=== PATIENT | female | born 1935 | race Caucasian/White ===

== ENCOUNTER 2018-05-28 14:50 | Observation (INO) ==
--- NOTE | 2018-05-28 15:22 | Emergency Department Note ---
Disposition Clinical Impression: Dyspnea on exertion Chest pain Qualifiers: Chest pain type: unspecified Qualified Code(s): R07.9 - Chest pain, unspecified Disposition: Admitted As Inpatient Condition: Good Referrals: Kj Barber DO [Primary Care Provider] - Forms: ED Satisfaction Letter Time of Disposition: 18:01 SOB HPI - General Chief Complaint: ED Shortness of Breath/Dyspnea Stated Complaint: FILEMON Time Seen by Provider: 05/28/18 15:04 Source: patient, family () Mode of arrival: ambulatory Limitations: no limitations Nursing Notes Reviewed: Yes Vital Signs Reviewed: Yes - History of Present Illness 82-year-old female history of atrial fibrillation, mitral valve replacement ( pig valve) no anticoagulation, and COPD on to liter oxygen supplementation only as needed presents emergency department for difficulty breathing and chest pressure. States over the past week she is gradually got more short of breath. It is worse on exertion. She is also been experiencing a flutter in her chest most recent was when the EKG was performed. She does not experience it right now at the moment. She typically does not wear supplemental oxygen at baseline only when needed. Recently she has been requiring this. She has also been experiencing chest pressure in the midsternum whenever she gets up to walk. The most recent was getting from the car to the emergency department entrance. It does get better with rest. Denies history of cardiac ischemic disease. He is currently chest pain free. She is also noticed that her legs have swollen more than usual. It does not improve with elevating her legs. She reports a cough earlier in the week that has now resolved. Denies any fever or congestion. Her test lab technician is Dr. aDisy Dempsey. The surgeon that performed her mitral valve repair Dr. Rosenberg. She never smoked. She does report using her inhaler with minimal relief. February 2018 she had her left shoulder replaced. Pt Subjective Complaint: shortness of breath, cough, chest pain - Related Data Home Medications Medication Instructions Recorded Confirmed Aspirin Enteric Coated [Aspirin EC] 162 mg PO DAILY 05/28/18 05/28/18 Cetirizine HCl [Zyrtec] 10 mg PO DAILY 05/28/18 05/28/18 FLUoxetine HCl [Fluoxetine HCl] 40 mg PO DAILY 05/28/18 05/28/18 HYDROcodone/Acet 10/325 mg [[place] 1 tab PO Q6HR PRN 05/28/18 05/28/18 10-325 mg] Ibuprofen [Advil] 200 mg PO 2-3XD PRN 05/28/18 05/28/18 Lisinopril [Zestril] 10 mg PO DAILY 05/28/18 05/28/18 Metoprolol Succinate [Toprol Xl] 50 mg PO DAILY 05/28/18 05/28/18 Multivitamin [One Daily Essential] 1 tab PO DAILY 05/28/18 05/28/18 Pantoprazole Sodium [Protonix] 40 mg PO DAILY 05/28/18 05/28/18 Pravastatin Sodium [Pravachol] 40 mg PO HS 05/28/18 05/28/18 hydroCHLOROthiazide 25 mg PO DAILY 05/28/18 05/28/18 [Hydrochlorothiazide] Allergies Allergy/AdvReac Type Severity Reaction Status Date / Time codeine Allergy See Verified 05/28/18 15:54 Comments Sulfa (Sulfonamide Allergy See Verified 05/28/18 15:54 Antibiotics) Comments All systems ED: reviewed and negative except as stated. Review of Systems: As Per HPI Constitutional: Denies: fever, chills ENT ED: Denies: congestion Cardiovascular: Reports: chest pain, dyspnea on exertion Respiratory: Reports: dyspnea. Denies: cough, hemoptysis Gastrointestinal: Denies: abdominal pain, nausea, vomiting Genitourinary: Denies: urgency, dysuria Neurological: Denies: headache Past Medical History - Past Medical History Attestation: Yes The following information was validated with the patient. Source: patient Physical Exam - General Limitations: no limitations General appearance: alert, in no apparent distress, obese - Head Head exam: atraumatic, normocephalic, normal inspection - Eye Eye exam: Present: normal appearance, PERRL, EOMI - ENT ENT exam: normal exam, normal oropharynx, mucous membranes moist - Neck Neck exam: Present: normal inspection, full ROM, trachea midline - Chest Chest inspection: Present: normal inspection, symmetric chest wall rise. Absent : tenderness - Respiratory Respiratory exam: Present: normal lung sounds bilaterally. Absent: respiratory distress, wheezes - Cardiovascular Cardiovascular exam: Present: regular rate, normal rhythm, normal heart sounds. Absent: systolic murmur, diastolic murmur, clicks - Abdominal Exam Abdominal exam: Present: soft, Non-Tender, normal bowel sounds. Absent: tenderness, distention, guarding, rebound, rigidity - Extremities Exam Extremities exam: Present: normal inspection, full ROM, normal capillary refill , pedal edema (Pitting +1 bilateral, swelling is symmetrical), other (Bilateral total knee replacement scar). Absent: tenderness, calf tenderness - Back Exam Back exam: Present: normal inspection, full ROM. Absent: tenderness - Neurological Exam Neurological exam: Present: alert, oriented X3 - Psychiatric Psychiatric exam: Present: normal affect, normal mood - Skin Skin exam: Present: warm, dry, intact, normal color. Absent: rash, cyanosis, diaphoresis Course Course Narrative: Patient presents with worsening shortness of breath over the past week worse on exertion with associated chest pressure. No history of cardiac ischemic disease. On examination here she has some conversational dyspnea. Her oxygen saturation is 93% on room air. Lungs sounds are clear to auscultation bilaterally. Heart's regular rate and rhythm. She does have some pitting edema symmetrical bilaterally to lower extremities. At this time her dyspnea is undifferentiated and will evaluate with BNP a chest x-ray basic labs including troponin and the D dimer she has low risk without prior history of blood clots - Reevaluation(s) Reevaluation #1: Troponin lesson 0.03. Her D dimer is significantly elevated 1300. Given her remote history of left shoulder replacement will obtain CTA chest. Her BNP is also elevated > 500 Time: 16:23 Reevaluation #2: CT of the chest and not reveal pulmonary embolism. No evidence of effusion or pneumonia. At this time patient will be admitted for dyspnea on exertion as well as her chest pressure. Her BNP was significantly elevated 529 and could suggest mild CHF. Patient has been given aspirin here she would be admitted to the hospitalist service. Time: 18:00 Reevaluation #3: Patiently waiting call back from hospital for admission. Patient remains in no acute respiratory distress. Her oxygen saturation did drop to 86% and she was placed on 2 liter nasal cannula. Her oxygen saturation currently remains at 96% Time: 19:06 - Consultations Consultation #1: Spoke with on-call hospitalist essie Bravo to admit for dyspnea on exertion, elevated BNP and chest pain. No further orders at this time Time: 19:18 Vital Signs Temperature 98.2 F 05/28/18 14:54 Pulse Rate 65 08/02/18 14:54 Respiratory Rate 26 05/28/18 14:54 Blood Pressure 155/88 05/28/18 14:54 O2 Sat by Pulse Oximetry 91 05/28/18 14:54 Temperature 98.2 F 05/28/18 15:30 Pulse Rate 64 05/28/18 15:30 Respiratory Rate 22 05/28/18 15:30 Blood Pressure 134/79 05/28/18 15:30 O2 Sat by Pulse Oximetry 92 05/28/18 15:41 Oxygen Delivery Oxygen Delivery Room Air Shortness of Breath/Dyspnea - MDM Narrative Medical decision making narrative: Patient was discussed with my attending physician who agrees with ED management and final disposition. They independently evaluated the patient. Please refer to their attestation to this encounter for additional information. This note was generated by [employer] voice recognition software and as a result grammatical or spelling errors may occur using this program. - Medical Records Medical records reviewed: Yes I reviewed the patient's medical records. - Lab Data Lab results reviewed: Yes I reviewed the patient's lab results. Result diagrams: 05/28/18 15:48 05/28/18 15:48 Lab Results 05/28/18 05/28/18 05/28/18 Range/Units 15:48 15:48 15:48 WBC 6.0 (4.3-11.1) K/mcL RBC 3.74 L (3.82-4.97) M/mcL Hgb 11.6 (11.5-15.4) g/dL Hct 35.4 (35.3-44.9) % MCV 94.7 (83.0-100.0) fL MCH 31.0 (28.0-33.3) pg MCHC 32.8 (31.6-35.5) g/dL RDW 14.2 (11.5-14.5) % Plt Count 185 (140-400) K/mcL MPV 10.0 (9.4-12.4) fL Immature Gran % 0.3 (0-4) % Seg Neutrophils % 61.7 % Lymphocytes % 23.5 % Monocytes % 11.2 % Eosinophils % 2.8 % Basophils % 0.5 % Neutrophils # 3.7 (1.6-8.9) K/mcL Lymphocytes # 1.4 (0.6-4.6) K/mcL Monocytes # 0.7 (0.0-1.3) K/mcL Eosinophils # 0.2 (0.0-0.6) K/mcL Basophils # 0.0 (0.0-0.2) K/mcL D-Dimer (0-500) ng/mLFEU Sodium 139 (136-145) mEq/L Potassium 3.6 (3.5-5.1) mEq/L Chloride 102 (98-107) mEq/L Carbon Dioxide 27 (23-29) mEq/L BUN 21 (8-23) mg/dL Creatinine 0.92 (0.60-1.20) mg/dL Est GFR ( Amer) > 60 (> 60) Est GFR (Non-Af Amer) 59 L (> 60) BUN/Creatinine Ratio 23 (6-26) Glucose 109 H (70-105) mg/dL Calculated Osmolality 292 (280-300) Lactic Acid 1.0 (0.5-2.2) mmol/L Calcium 9.7 (8.6-10.3) mg/dL Total Bilirubin 1.0 (0.3-1.0) mg/dL AST 23 (13-39) Units/L ALT 12 (7-52) Units/L Alkaline Phosphatase 96 (34-104) Units/L Troponin I < 0.03 (< 0.04) ng/mL B-Natriuretic Peptide (Less than 100) pg/mL Serum Total Protein 7.2 (6.4-8.9) g/dL Albumin 4.1 (3.5-5.7) g/dL Globulin 3.1 (2.4-3.5) g/dL Albumin/Globulin Ratio 1.3 (1.1-2.2) 05/28/18 05/28/18 Range/Units 15:48 15:48 WBC (4.3-11.1) K/mcL RBC (3.82-4.97) M/mcL Hgb (11.5-15.4) g/dL Hct (35.3-44.9) % MCV (83.0-100.0) fL MCH (28.0-33.3) pg MCHC (31.6-35.5) g/dL RDW (11.5-14.5) % Plt Count (140-400) K/mcL MPV (9.4-12.4) fL Immature Gran % (0-4) % Seg Neutrophils % % Lymphocytes % % Monocytes % % Eosinophils % % Basophils % % Neutrophils # (1.6-8.9) K/mcL Lymphocytes # (0.6-4.6) K/mcL Monocytes # (0.0-1.3) K/mcL Eosinophils # (0.0-0.6) K/mcL Basophils # (0.0-0.2) K/mcL D-Dimer 1378 H (0-500) ng/mLFEU Sodium (136-145) mEq/L Potassium (3.5-5.1) mEq/L Chloride (98-107) mEq/L Carbon Dioxide (23-29) mEq/L BUN (8-23) mg/dL Creatinine (0.60-1.20) mg/dL Est GFR ( Amer) (> 60) Est GFR (Non-Af Amer) (> 60) BUN/Creatinine Ratio (6-26) Glucose (70-105) mg/dL Calculated Osmolality (280-300) Lactic Acid (0.5-2.2) mmol/L Calcium (8.6-10.3) mg/dL Total Bilirubin (0.3-1.0) mg/dL AST (13-39) Units/L ALT (7-52) Units/L Alkaline Phosphatase (34-104) Units/L Troponin I (< 0.04) ng/mL B-Natriuretic Peptide 560 H (Less than 100) pg/mL Serum Total Protein (6.4-8.9) g/dL Albumin (3.5-5.7) g/dL Globulin (2.4-3.5) g/dL Albumin/Globulin Ratio (1.1-2.2) - Radiology Data Radiology results reviewed: Yes I reviewed the patient's radiology results. Chest X-Ray 05/28/18 14:56 IMPRESSION: 1. Interval appearance of a left base opacity with small effusion. Differential considerations include infection or atelectasis. Recommend following to resolution. 2. Emphysema. D/ / 05/28/2018 15:56:52 Naida Martinez MD / luis Interpreting Provider: Naida Martinez MD Chest CTA 05/28/18 16:31 IMPRESSION: No evidence of pulmonary embolism. D/ / Robinson Hernandez MD / Robinson Hernandez MD Interpreting Provider: Robinson Hernandez MD - EKG Data EKG attestation: Yes I reviewed and interpreted this EKG. EKG results narrative: EKG performed 1459 sinus rhythm 64 beats permanent, no ST elevation or depression, no T-wave inversion, VT interval 208 QT QTC 454 464. There is no old EKG available for comparison at this time. No acute ischemic changes. Attestation Statement - Attestation Attestation: I examined this patient and my medical decision-making was reviewed with the Resident Physician, Dr. Meehan. I agree with the documented findings, disposition and treatment plan as described except to the extent set forth below. Patient is an 82-year-old white female with a history of COPD, paroxysmal atrial fibrillation not on anticoagulation, and mitral valve replacement who presents to the emergency department with a week and a half of gradually worsening exertional dyspnea associated with some chest heaviness. Patient arrives here asymptomatic at rest but states if she walks more than a few steps her shortness of breath and chest heaviness returns. Symptoms are relieved with rest. Patient denies any palpitations, no lightheadedness or syncope. Patient denies any diaphoresis, abdominal pain or back pain associated with her symptoms. Patient does complain of some mild bilateral lower extremity edema that gradually worsened over the past week as well. Patient uses oxygen on an as-needed basis but states that since she is been more short of breath she has been using 2 L nasal cannula at all times. I agree with patient's physical exam findings as documented. Vital signs are stable with the exception of some mild hypoxia on room air. Patient is in no acute distress has no conversational dyspnea or increased work of breathing during my assessment. EKG shows a normal sinus rhythm with no acute ischemia. Patient had full lab evaluation including chest x-ray and given a dose of aspirin on arrival to the ED. Patient's lab evaluation shows a significantly elevated d-dimer, as well as a mild elevation in her BNP. Chest x-ray showed a questionable left lower lobe opacity with small effusion is new from her prior chest x-ray imaging. Unclear if infiltrate versus atelectasis. Patient was sent for CTA of the chest which was unremarkable for any abnormal pulmonary findings and no PE. Patient will be admitted for exertional dyspnea and chest pressure for further evaluation. Her respiratory status has remained stable throughout her ED course. Case was discussed with hospitalist to accepted patient for further evaluation and management.
[2018-05-28] MEDS ORDERED: Aspirin 81 MG TAB.CHEW PO STA (15:33)
[2018-05-28 16:12] LABS: Basophils % 0.5 %; Eosinophils # 0.2 K/mcL (0.0-0.6); Eosinophils % 2.8 %; Hematocrit 35.4 % (35.3-44.9); Hemoglobin 11.6 g/dL (11.5-15.4); Immature Granulocytes % 0.3 % (0-4); Lymphocytes # 1.4 K/mcL (0.6-4.6); Lymphocytes % 23.5 %; Mean Corpuscular HGB Conc 32.8 g/dL (31.6-35.5); Mean Corpuscular Volume 94.7 fL (83.0-100.0); Monocytes # 0.7 K/mcL (0.0-1.3); Monocytes % 11.2 %; Neutrophils # 3.7 K/mcL (1.6-8.9); Platelet Count 185 K/mcL (140-400); Red Blood Count 3.74 M/mcL (3.82-4.97); Red Cell Distribution Width 14.2 % (11.5-14.5); Segmented Neutrophils % 61.7 %
[2018-05-28 16:22] LABS: BUN/Creatinine Ratio 23 (6-26); Blood Urea Nitrogen 21 mg/dL (8-23); Carbon Dioxide 27 mEq/L (23-29); Chloride 102 mEq/L (98-107); Glucose 109 mg/dL (70-105); Osmolality,Calculated 292 (280-300); Potassium 3.6 mEq/L (3.5-5.1); Sodium 139 mEq/L (136-145); eGFR For Non-African Americans 59 (> 60)
[2018-05-28 16:23] LABS: Alanine Aminotransferase 12 Units/L (7-52); Albumin 4.1 g/dL (3.5-5.7); Albumin/Globulin Ratio 1.3 (1.1-2.2); Alkaline Phosphatase 96 Units/L (34-104); Aspartate Amino Transferase 23 Units/L (13-39); Calcium 9.7 mg/dL (8.6-10.3); Globulin 3.1 g/dL (2.4-3.5); Total Protein 7.2 g/dL (6.4-8.9); Troponin I < 0.03 ng/mL (< 0.04)
[2018-05-28] MEDS ORDERED: Isovue-370 500 ML INFUS..BTL IV ONE (16:31)
[2018-05-28] MEDS ORDERED: *HR* HYDROcodone/Acet 10/325 mg TABLET PO PRN (19:42)
[2018-05-28] MEDS ORDERED: Ibuprofen 400 MG TABLET PO PRN (19:42)
[2018-05-28] MEDS ORDERED: Ipratropium/Albuterol Neb 3 ML IH PRN (19:43)
[2018-05-28] MEDS ORDERED: Furosemide 40 MG/4 ML VIAL IVP ONE (20:17)
--- NOTE | 2018-05-28 20:34 | Internal Med History&Physical ---
Date of Encounter: 05/28/18 Time of Encounter: 20:23 Internal Medicine - H&P: HPI Chief complaint: SOB Admitted From: Home Plans for Post Hospital Care: Home History of present illness: Ms. 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 She states that over the past week she is progressively getting more short of breath with mild to moderate exertion prompting an increasing need for oxygen. She has also been experiencing a flutter in her chest intermittently as well as experiencing chest pressure in the midsternum whenever she gets up to walk. The most recent episode was getting from the car to the emergency department entrance. It does get better with rest. She denies history of cardiac ischemic disease and stroke. She is currently chest pain free. She has also noticed that her legs have become swollen more than usual and occasionally extending up to her knees. It does not improve with elevating her legs. No lightheadedness or syncope. Patient denies any diaphoresis, abdominal pain or back pain associated with her symptoms. She reports a dry cough earlier in the week that has now resolved. Denies any fever, chills or congestion. Her ready mix truck driver is Dr. Daisy Dempsey. The surgeon that performed her mitral valve repair Dr. Rosenberg. She has never smoked. She does report using her inhaler with minimal relief. She had her left shoulder replaced in February 2018. In the emergency room she was seen to have an elevated blood pressure and mild hypoxia on room air. She was given a loading dose of ASA. She had an elevated d- dimer but CTA was negative for PE. Chest x-ray showed a questionable left lower lobe opacity with small effusion; unclear if infiltrate versus atelectasis. On my assessment she was in no acute distress, had no conversational dyspnea or increased work of breathing. Past Med Surg Social Fam HX - Past Medical History Medical history: cancer, CHF, COPD, GERD, hyperlipidemia, hypertension, other Additional medical history: mitral valve, fibromyalgia Psychiatric history: depression - Past Surgical History Additional surgical history: mitral valve replaced 2010. right shoulder 2012. left knee 2002. right knee 2004. radical masectomy . left shoulder 2018. oopherectomy 73 - Social History Smoking Status: Never smoker Smokeless Tobacco Status: No Alcohol use: none Drug use: none Internal Medicine - H&P: Meds Aspirin Enteric Coated [Aspirin EC] 162 mg PO DAILY 05/28/18 [History] Cetirizine HCl [Zyrtec] 10 mg PO DAILY 05/28/18 [History] FLUoxetine HCl [Fluoxetine HCl] 40 mg PO DAILY 05/28/18 [History] HYDROcodone/Acet 10/325 mg [[place] 10-325 mg] 1 tab PO Q6HR PRN 05/28/18 [History ] Ibuprofen [Advil] 200 mg PO 2-3XD PRN 05/28/18 [History] Lisinopril [Zestril] 10 mg PO DAILY 05/28/18 [History] Metoprolol Succinate [Toprol Xl] 50 mg PO DAILY 05/28/18 [History] Multivitamin [One Daily Essential] 1 tab PO DAILY 05/28/18 [History] Pantoprazole Sodium [Protonix] 40 mg PO DAILY 05/28/18 [History] Pravastatin Sodium [Pravachol] 40 mg PO HS 05/28/18 [History] hydroCHLOROthiazide [Hydrochlorothiazide] 25 mg PO DAILY 05/28/18 [History] 3 Allergy/AdvReac Type Severity Reaction Status Date / Time codeine Allergy See Verified 05/28/18 15:54 Comments Sulfa (Sulfonamide Allergy See Verified 05/28/18 15:54 Antibiotics) Comments All Systems PM: A 10-system review of systems was performed and is negative for pertinent findings except as documented above in the HPI. - Constitutional Vitals: Temp Pulse Resp BP Pulse Ox 98.6 F 62 16 172/93 92 05/28/18 20:06 05/28/18 20:06 05/28/18 20:06 05/28/18 20:06 05/28/18 20:06 Exam: Vitals: Reviewed General: Well-developed elderly lady sitting comfortably in bed in no acute distress. Skin: No lesions or ulcers. HEENT: Moist mucous membranes. No conjunctivae pallor. Neck: No lymphadenopathy. No JVD. No carotid bruits. No palpable thyroid. Chest: Normal thoracic expansion. Diminished breath sounds in the bases with fines rales auscultated. Heart: Irregularly irregular. Abdomen: Non-distended, soft and non-tender to palpation. No peritoneal reaction. Extremities: 1-2+ pitting edema in both legs. Neurological: Awake, alert and oriented to person, place and time. No focal deficits. Psych: Affect appropriate. Internal Med - H&P Results - Labs CBC & Chem 7: 05/28/18 15:48 05/28/18 15:48 - Assessment and plan (1) Dyspnea on exertion Current Visit: Yes Status: Acute Assessment and plan: The patient has increasing shortness of breath and pedal edema. She has fine rales on my auscultation. This is concerning for heart failure perhaps triggered by hypertensive cardiomyopathy, valvular heart disease or her underlying arrhythmia. Her echo from October 2016 showed normal left ventricular size and systolic function, LVEF 55-60%, atypical septal motion consistent with prior cardiac surgery and indeterminate diastolic function. -Will check another echo tomorrow. -Will treat COPD as well as a possible concomitant factor. -Give 1 dose of 40mg furosemide now and re-evaluate clinical status tomorrow. -Supplemental oxygen to maintain Spo2 above 92%. (2) Chest pain Current Visit: Yes Status: Acute Assessment and plan: The patient is currently asymptomatic but has had intermittent episodes with exertion. She does have moderate risk of CAD which warrants her observation. Pulmonary embolism has been ruled out in the setting of her positive d-dimer. -Will trend troponins to rule out ACS. -Continue ASA and statin. -Will check echo tomorrow to assess for new wall motion abnormalities. -Monitor on telemetry. - Qualifiers: Chest pain type: unspecified Qualified Code(s): R07.9 - Chest pain, unspecified (3) COPD (chronic obstructive pulmonary disease) Current Visit: Yes Status: Acute Assessment and plan: The patient's CT shows emphysematous lungs and she is only on ISAIAS therapy prn with an increasing need for more. -Will place on standing duonebs q6hrs for the next 24hrs for symptomatic relief and assist with her dyspnea. -No need for steroids or abx at this time. -Supplemental oxygen to maintain SpO2 above 92%. Qualifiers: COPD type: emphysema Emphysema type: panlobular Qualified Code(s): J43.1 - Panlobular emphysema (4) Atrial fibrillation Current Visit: Yes Status: Acute Assessment and plan: Known history but not on anticoagulation perhaps due to fall risk. -Will continue to monitor on telemetry. Qualifiers: Atrial fibrillation type: paroxysmal Qualified Code(s): I48.0 - Paroxysmal atrial fibrillation (5) Hypertension Current Visit: Yes Status: Acute Assessment and plan: Uncontrolled. -Will resume oral antihypertensives and titrate accordingly. Qualifiers: Hypertension type: essential hypertension Qualified Code(s): I10 - Essential (primary) hypertension (6) Need for assistance due to unsteady gait Current Visit: Yes Status: Acute Assessment and plan: Has a history of unsteady gait leading to falls and requires ambulatory assistance. -Will consult PT for evaluation. (7) DVT prophylaxis Current Visit: Yes Status: Acute Assessment and plan: SubQ heparin ordered. - Time Spent With Patient Total time spent is greater than 50% in coordination of care (as documented) at patient's floor/unit and/or counseling patient: 25 - 35 minutes
[2018-05-28] MEDS: *HR* Heparin 5,000 UNIT/ML VIAL SQ SCH (21:53)
[2018-05-28] MEDS: Ipratropium/Albuterol Neb 3 ML IH SCH (22:21)
[2018-05-29] MEDS: Ipratropium/Albuterol Neb 3 ML IH SCH ×4 (03:41→22:11)
[2018-05-29] MEDS: *HR* Heparin 5,000 UNIT/ML VIAL SQ SCH ×3 (05:51→21:08)
[2018-05-29] MEDS: Multivit/Ca/Min/Fe/FA 1 TAB TABLET PO SCH (09:54)
[2018-05-29] MEDS: Metoprolol XL (24 HR) Succ 50 MG TAB.ER.24H PO SCH (09:54)
[2018-05-29] MEDS: Aspirin Enteric Coated 81 MG Tablet PO SCH (09:54)
[2018-05-29] MEDS: FLUoxetine 20 MG CAPSULE PO SCH (09:54)
[2018-05-29] MEDS: hydroCHLOROthiazide 25 MG TABLET PO SCH (09:55)
[2018-05-29] MEDS: Loratadine 10 MG TABLET PO SCH (09:55)
--- NOTE | 2018-05-29 12:44 | Electrocardiograph Report ---
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
--- NOTE | 2018-05-29 15:26 | Internal Med Progress Note ---
Hospitalist Progress Note - Encounter Date of Encounter: 05/29/18 Time of Encounter: 15:26 - Subjective Interval History: Seen and examined at bedside. Patient is new to me, information obtained from chart review and patient report. Still has some shortness of breath that is worse with exertion but overall significantly improved. No chest pain recurrence. Feels swelling in lower legs is improved as well. - Exam Vitals: Temp Pulse Resp BP Pulse Ox 98.3 F 68 16 135/77 91 05/29/18 11:54 05/29/18 11:54 05/29/18 11:54 05/29/18 11:54 05/29/18 11:54 Exam: Vitals: Reviewed General: Well-developed elderly lady sitting comfortably in bed in no acute distress. Skin: No lesions or ulcers. HEENT: Moist mucous membranes. No conjunctivae pallor. Neck: No lymphadenopathy. No JVD. No carotid bruits. No palpable thyroid. Chest: Normal thoracic expansion. Diminished breath sounds in the bases with fines rales auscultated. Heart: Irregularly irregular. Abdomen: Non-distended, soft and non-tender to palpation. No peritoneal reaction. Extremities: Trace nonpitting bilateral lower extremity edema Neurological: Awake, alert and oriented to person, place and time. No focal deficits. Psych: Affect appropriate. - Assessment and Plan (1) Dyspnea on exertion Current Visit: Yes Status: Acute Assessment and Plan: presented with worsening shortness of breath and lower extremity edema. Chest CTA negative for pulmonary embolism but did show emphysema. CXR nonacute. BNP 538Symptoms appear to be consistent with fluid overload; possibly diastolic dysfunction. Continue IV diuresis. Strict I&O and daily weights. Repeat echo pending (2) Chest pain Current Visit: Yes Status: Acute Assessment and Plan: with associated SON on exertion. Suspect secondary to fluid overload. Chest CTA negative for pulmonary embolism. Serial troponin unremarkable. No acute EKG changes. Check echocardiogram. Monitor on tele (3) Atrial fibrillation Current Visit: Yes Status: Acute Assessment and Plan: per hx. Rate controlled. Not on anticoagulation presumably due to high fall risk. (4) COPD (chronic obstructive pulmonary disease) Current Visit: Yes Status: Acute Assessment and Plan: per hx. no evidence of exacerbation. No indication for ATB or steroids at this time. PRN duonebs (5) Hypertension Current Visit: Yes Status: Acute Assessment and Plan: per hx. BP controlled. Cont home BP medication. DVT Prophylaxis: heparin - Time Spent with Patient Total time spent is greater than 50% in coordination of care (as documented) at patient's floor/unit and/or counseling patient: Internal Medicine: Result - Labs CBC & Chem 7: 05/28/18 15:48 05/28/18 15:48 Labs: Cardiac Enzymes 05/28/18 05/29/18 Range/Units 21:39 04:04 Troponin I 0.03 0.03 (< 0.04) ng/mL - ABG Interpretation ABG results: PT/INR, D-dimer D-Dimer 1378 ng/mLFEU (0-500) H 05/28/18 15:48 - Impressions Impressions Echocardiogram 05/28/18 19:45 Impressions: LVEF 60%. Mild concentric left ventricular hypertrophy. Atypical septal motion consistent with post-operative status. RV is foreshortened in the apical views and not well visualized. In other windows it appears dilated and mild-moderately hypokinetic. Bi-atrial enlargement. Bioprosthetic mitral valve leaflet morphology not well visualized. Normal function by Doppler. Struts project into the LVOT - no LVOT obstruction. Mild-moderate tricuspid regurgitation. Estimated RVSP is 83 mmHg. Severe pulmonary hypertension. IVC is dilated. Left Ventricular Wall Motion: Rest Echo Findings All wall segments showed normal motion. Findings: Study Quality * Technically adequate exam. ECG Findings * Normal sinus rhythm. Left Ventricle * LVEF 60%. * Mild concentric left ventricular hypertrophy. * Atypical septal motion consistent with post-operative status. * No LVOT obstruction. Right Ventricle * RV is foreshortened in the apical views and not well visualized. In other windows it appears dilated and mild-moderately hypokinetic. Left Atrium * Severely dilated left atrium. Right Atrium * Moderately dilated right atrium. Aortic Valve * No aortic regurgitation. * Trileaflet aortic valve. * No aortic stenosis. Mitral Valve * No mitral regurgitation. * No mitral stenosis. MG 4 mmHg * Bioprosthetic mitral valve leaflet morphology not well visualized. Struts abut the LVOT. Tricuspid Valve * Normal tricuspid valve structure. * Estimated RA pressure is 20 mmHg. * Estimated RVSP is 83 mmHg. * Severe pulmonary hypertension. * Mild-moderate tricuspid regurgitation. Pulmonic Valve * Pulmonic valve is not well visualized. * No pulmonic stenosis. * No pulmonic regurgitation. Pulmonary Artery * Pulmonary artery not well visualized. Aorta * Normally sized aortic root. Pericardium * There is no pericardial effusion present. Interatrial Septum * No evidence of PFO by color Doppler. IVC * The IVC is dilated. * < 50% respiratory change. Consult Discharge Plan - Plan Referrals: Kj Barber DO [Primary Care Provider] - (2) Chest pain Qualifiers: Chest pain type: unspecified Qualified Code(s): R07.9 - Chest pain, unspecified (3) Atrial fibrillation Qualifiers: Atrial fibrillation type: paroxysmal Qualified Code(s): I48.0 - Paroxysmal atrial fibrillation (4) COPD (chronic obstructive pulmonary disease) Qualifiers: COPD type: emphysema Emphysema type: panlobular Qualified Code(s): J43.1 - Panlobular emphysema (5) Hypertension Qualifiers: Hypertension type: essential hypertension Qualified Code(s): I10 - Essential (primary) hypertension
[2018-05-30] MEDS: Ipratropium/Albuterol Neb 3 ML IH SCH ×3 (04:02→15:40)
[2018-05-30] MEDS: *HR* Heparin 5,000 UNIT/ML VIAL SQ SCH (05:51)
[2018-05-30] MEDS: Aspirin Enteric Coated 81 MG Tablet PO SCH (09:30)
[2018-05-30] MEDS: Loratadine 10 MG TABLET PO SCH (09:30)
[2018-05-30] MEDS: Metoprolol XL (24 HR) Succ 50 MG TAB.ER.24H PO SCH (09:30)
[2018-05-30] MEDS: hydroCHLOROthiazide 25 MG TABLET PO SCH (09:31)
[2018-05-30] MEDS: Multivit/Ca/Min/Fe/FA 1 TAB TABLET PO SCH (09:31)
[2018-05-30] MEDS: FLUoxetine 20 MG CAPSULE PO SCH (09:31)
--- NOTE | 2018-05-30 10:23 | Discharge Summary ---
- NOTES TO OUTPATIENT PROVIDER Notes to Outpatient Provider: Recommend routine follow-up within one week to reassess renal function as she was started on low-dose Lasix this hospitalization as well as potassium level Orders not resulted at time of discharge: Pending orders 05/28/18 20:18 EKG [ECG 12 lead ECG] [ECG] Routine 05/30/18 10:19 BMP [Basic Metabolic Panel] Routine Date of Encounter: 05/30/18 Time of Encounter: 10:21 - Discharge Diagnosis (1) Acute on chronic diastolic (congestive) heart failure Priority: Primary Status: Acute Assessment and Plan: presented with SOB. TTE with EF 60% and mild diastolic dysfunction. Shortness of breath and lower extremity edema significantly improved with IV Lasix. Not on Lasix at home. Discharge home on low-dose furosemide, educated at length on low-sodium diet. HCTZ stopped to decrease the risk of hypotension, dehydration and possible fall with use of 2 diuretics and elderly patient with multiple comorbidities. Recommend follow-up with outpatient lead nitrate processor. (2) Dyspnea on exertion Priority: Primary Status: Acute Assessment and Plan: presented with worsening shortness of breath and lower extremity edema. Chest CTA negative for pulmonary embolism but did show emphysema. CXR nonacute. With acute on chronic diastolic heart failure as noted above. Symptoms improved at discharge. (3) Chest pain Priority: Primary Status: Acute Assessment and Plan: with associated SON on exertion. Suspect secondary to fluid overload. Chest CTA negative for pulmonary embolism. Serial troponin unremarkable. No acute EKG changes. TTE with preserved EF and no wall motion abnormality. Denied chest pain at time of discharge. Recommend follow-up with primary lead nitrate processor outpatient for possible stress test. Patient advised to return to ER if chest pain or SOB recurs; verbalizes understanding. Qualifiers: Chest pain type: unspecified Qualified Code(s): R07.9 - Chest pain, unspecified (4) Atrial fibrillation Priority: Secondary Status: Acute Assessment and Plan: per hx. Rate controlled. Not on anticoagulation due to hx significant GI bleed Qualifiers: Atrial fibrillation type: paroxysmal Qualified Code(s): I48.0 - Paroxysmal atrial fibrillation (5) COPD (chronic obstructive pulmonary disease) Priority: Secondary Status: Acute Assessment and Plan: per hx. no evidence of exacerbation. No indication for ATB or steroids. Cont home steroids Qualifiers: COPD type: emphysema Emphysema type: panlobular Qualified Code(s): J43.1 - Panlobular emphysema (6) Hypertension Priority: Primary Status: Acute Assessment and Plan: per hx. BP controlled. Cont home BP medication. Qualifiers: Hypertension type: essential hypertension Qualified Code(s): I10 - Essential (primary) hypertension (7) Pulmonary hypertension, moderate to severe Priority: Primary Status: Acute Assessment and Plan: per hx. TTE with severe pulmonary hypertension. Follows with pulmonology outpatient and was advised on 01/2018 visit to be compliant with home CPAP. Patient still noncompliant secondary to ill fitting mask. Strongly advised her to follow-up with provider of CPAP machine to find and appropriate fitting mask (8) H/O mitral valve replacement Priority: Secondary Status: Chronic Hospital course: please see assessment and plan for Hospital course Discharge discussed with: patient (Seen and examined at bedside. Patient says she feels better, back to baseline would like to go home today. Educated at length on the importance of a low sodium diet and initiation of lasix. Denies chest pain psych: Reports chest tightness on day of arrival with no recurrence. Would like to follow-up with her lead nitrate processor outpatient for possible stress test. Advised return to ER if chest pain or SOB recurs. Patient verbalized understanding.) - Time Spent with Patient Total time spent providing and/or coordinating discharge services: - Discharge Medications Prescriptions: Furosemide [Lasix] 20 mg PO DAILY #30 tablet Home Medications: Aspirin Enteric Coated [Aspirin EC] 162 mg PO DAILY 05/28/18 [History] Cetirizine HCl [Zyrtec] 10 mg PO DAILY 05/28/18 [History] FLUoxetine HCl [Fluoxetine HCl] 40 mg PO DAILY 05/28/18 [History] HYDROcodone/Acet 10/325 mg [[place] 10-325 mg] 1 tab PO Q6HR PRN 05/28/18 [History ] Ibuprofen [Advil] 200 mg PO 2-3XD PRN 05/28/18 [History] Lisinopril [Zestril] 10 mg PO DAILY 05/28/18 [History] Metoprolol Succinate [Toprol Xl] 50 mg PO DAILY 05/28/18 [History] Multivitamin [One Daily Essential] 1 tab PO DAILY 05/28/18 [History] Pantoprazole Sodium [Protonix] 40 mg PO DAILY 05/28/18 [History] Pravastatin Sodium [Pravachol] 40 mg PO HS 05/28/18 [History] Furosemide [Lasix] 20 mg PO DAILY #30 tablet 05/30/18 [Rx] Allergies/Adverse Reactions: 3 Allergy/AdvReac Type Severity Reaction Status Date / Time codeine Allergy See Verified 05/28/18 15:54 Comments Sulfa (Sulfonamide Allergy See Verified 05/28/18 15:54 Antibiotics) Comments Date of admission: 05/28/18 19:33 Primary care physician: Kj Nguyen Colopy Consults: 05/29/18 11:49 Consult to Nurse Navigator [CONS] Routine Comment: COPD Discharging clinician: Bess Contreras Anticipated date of discharge: 05/30/18 - Constitutional Vitals: Temp Pulse Resp BP Pulse Ox 98.3 F 67 18 142/70 95 05/30/18 08:37 05/30/18 08:37 05/30/18 08:37 05/30/18 08:37 05/30/18 08:37 General appearance: Present: A&O X 3, morbidly obese, no acute distress - Head Head exam: Present: atraumatic, normocephalic - Eye Eye exam: Present: PERRL, conjuntiva pink, sclera anicteric Pupils: Present: PERRL - Neck Neck exam general surgery: Present: supple, trachea midline. Absent: lymphadenopathy - Respiratory Respiratory exam: Present: CTAB. Absent: accessory muscle use, rales, rhonchi, wheezes - Cardiovascular Cardiovascular exam: Present: RRR, +S1, +S2. Absent: diastolic murmur, gallop, rubs, systolic murmur - GI/Abdominal GI/Abdominal exam: Present: normal bowel sounds, soft, no peritoneal signs. Absent: distended, tenderness - Extremities Exam Extremities exam: Present: warm, radial pulses palpable and symmetrical. Absent : calf tenderness, cyanotic, pedal edema - Neurological Exam Neurological exam: Present: CN II-XII intact, oriented X3, no focal deficits. Absent: pronater drift, facial droop, speech deficit - Skin Skin exam: Present: dry, intact - Patient Status Disposition: Home, Self-Care Condition: Good Functional capacity at discharge: independent ambulation Overall status at discharge: patient is back to baseline - Discharge Instructions Instructions: Furosemide (By mouth), Heart Failure (DC), Low Sodium Diet (DC) Follow Up With: Kj Barber DO [Primary Care Provider] - (Please call for an appointment within 24 hours or the next business day) Guy Dempsey MD [Partnered Physician] - (Please call for an appointment within 24 hours or the next business day) - Diet and Activity Activity: increase activity as tolerated Diet: low fat, low cholesterol, low salt diet
[2018-05-30 11:26] LABS: BUN/Creatinine Ratio 19 (6-26); Blood Urea Nitrogen 17 mg/dL (8-23); Carbon Dioxide 31 mEq/L (23-29); Chloride 98 mEq/L (98-107); Glucose 135 mg/dL (70-105); Osmolality,Calculated 292 (280-300); Potassium 3.2 mEq/L (3.5-5.1); Sodium 139 mEq/L (136-145); eGFR For Non-African Americans > 60 (> 60)
[2018-05-30 12:13] VITALS: BP 144/78
== END 2018-05-30 15:29 | disposition home or self-care (01) ==
LOC: EMEROO 14:50 → 3BNU 14:50
PROVIDERS: ADMIT Internal Medicine; ATTEND Internal Medicine

== ENCOUNTER 2020-01-04 09:50 | Inpatient (IN) ==
[2020-01-04 10:32] LABS: Basophils % 0.4 %; Eosinophils % 0.1 %; Hematocrit 36.3 % (35.3-44.9); Hemoglobin 11.7 g/dL (11.5-15.4); Immature Granulocytes % 0.4 % (0-4); Lymphocytes # 0.4 K/mcL (0.6-4.6); Lymphocytes % 4.9 %; Mean Corpuscular HGB Conc 32.2 g/dL (31.6-35.5); Mean Corpuscular Hemoglobin 32.5 pg (28.0-33.3); Mean Corpuscular Volume 100.8 fL (83.0-100.0); Mean Platelet Volume 10.2 fL (9.4-12.4); Monocytes # 0.6 K/mcL (0.0-1.3); Monocytes % 7.5 %; Neutrophils # 6.9 K/mcL (1.6-8.9); Platelet Count 153 K/mcL (140-400); Red Cell Distribution Width 13.2 % (11.5-14.5); Segmented Neutrophils % 86.7 %; White Blood Count 7.9 K/mcL (4.3-11.1)
[2020-01-04 10:39] LABS: INR 1.2; Prothrombin Time 13.7 Seconds (9.4-12.1)
[2020-01-04 10:57] LABS: Albumin 4.3 g/dL (3.5-5.7); Albumin/Globulin Ratio 1.4 (1.1-2.2); Bilirubin,Direct 0.3 mg/dL (0.0-0.2); Bilirubin,Indirect 0.8 mg/dL (0.0-1.0); Bilirubin,Total 1.1 mg/dL (0.3-1.0); Calcium 10.2 mg/dL (8.6-10.3); Potassium 4.1 mEq/L (3.5-5.1); Total Protein 7.3 g/dL (6.4-8.9); Troponin I 0.04 ng/mL (< 0.04)
[2020-01-04] MEDS ORDERED: Aspirin 325 MG TABLET PO ONE (12:35)
[2020-01-04 12:58] LABS: Bilirubin,Urine Negative (Negative); Blood,Urine Negative (Negative); Clarity,Urine Clear (Clear); Color,Urine Yellow (Yellow); Glucose,Urine (UA) Normal (Normal); Ketones,Urine Negative (Negative); Leukocyte Esterase,Urine Moderate (Negative); Nitrite,Urine Negative (Negative); PH,Urine 5.5 pH Units (5.0-8.0); Protein,Urine Trace mg/dL (Neg-Trace); Specific Gravity,Urine 1.019 (1.010-1.025); Urobilinogen,Urine Normal (Normal)
[2020-01-04 13:00] LABS: Bacteria,Urine None Seen per hpf (None-Few); Hyaline Casts,Urine None Seen per lpf (None-Few); RBC,Urine 0-3 per hpf (0-3); Squamous Epithelial Cell,Urine Few per lpf (None-Few)
[2020-01-04] MEDS ORDERED: Naloxone 0.4 MG/ML INJ IVP PRN (13:25)
[2020-01-04] MEDS ORDERED: Furosemide 20 MG/2 ML VIAL IVP ONE (13:28)
[2020-01-04] MEDS ORDERED: Ipratropium/Albuterol Neb 3 ML IH PRN (13:50)
[2020-01-04] MEDS ORDERED: *HR* HYDROcodone/Acet 10/325 mg TABLET PO PRN (14:29)
[2020-01-04] MEDS: Ipratropium/Albuterol Neb 3 ML IH SCH ×2 (15:04→22:49)
[2020-01-04] MEDS: FLUoxetine 20 MG CAPSULE PO SCH (15:20)
[2020-01-04 15:24] LABS: Estimated Average Glucose 126 mg/dl
[2020-01-04] MEDS: *HR* Heparin 5,000 UNIT/ML VIAL SQ SCH (17:05)
[2020-01-04] MEDS: Acetaminophen 325 MG TABLET PO PRN (19:33)
[2020-01-04 20:50] LABS: Adenovirus Not Detected (Not Detect); Coronavirus 229E Not Detected (Not Detect); Coronavirus HKU1 Not Detected (Not Detect); Coronavirus NL63 Not Detected (Not Detect); Coronavirus OC43 Not Detected (Not Detect); Human Metapneumovirus Not Detected (Not Detect); Human Rhinovirus/Enterovirus Not Detected (Not Detect)
[2020-01-04 20:51] LABS: Bordetella Pertussis Not Detected (Not Detect); Chlamydophila pneumoniae Not Detected (Not Detect); Influenza A Subtype 2009 H1 DETECTED (Not Detect); Influenza B Not Detected (Not Detect); Mycoplasma pneumoniae Not Detected (Not Detect); Parainfluenza Virus 1 Not Detected (Not Detect); Parainfluenza Virus 2 Not Detected (Not Detect); Parainfluenza Virus 3 Not Detected (Not Detect); Parainfluenza Virus 4 Not Detected (Not Detect); Respiratory Syncytial Virus Not Detected (Not Detect)
[2020-01-05] MEDS: Ipratropium/Albuterol Neb 3 ML IH SCH ×4 (04:20→22:09)
[2020-01-05] MEDS: *HR* Heparin 5,000 UNIT/ML VIAL SQ SCH ×2 (05:41→17:38)
[2020-01-05] MEDS ORDERED: Triamterene/HCTZ 75/50 mg TABLET PO SCH (09:00)
[2020-01-05] MEDS: lisinopriL 10 MG TABLET PO SCH (09:35)
[2020-01-05] MEDS: Loratadine 10 MG TABLET PO SCH (09:35)
[2020-01-05] MEDS: Metoprolol XL (24 HR) Succ 50 MG TAB.ER.24H PO SCH (09:35)
[2020-01-05] MEDS: Aspirin Enteric Coated 81 MG Tablet PO SCH (09:35)
[2020-01-05] MEDS: FLUoxetine 20 MG CAPSULE PO SCH (09:35)
[2020-01-05] MEDS: Budesonide/Formoterol 160/4.5 1 PUFF INH IH SCH ×2 (09:41→22:09)
[2020-01-05 10:26] LABS: Troponin I 0.07 ng/mL (< 0.04)
[2020-01-05 12:40] LABS: Chol/HDL Ratio 2.5 (0-4.9)
[2020-01-05] MEDS ORDERED: Furosemide 40 MG/4 ML VIAL IVP SCH (13:30)
[2020-01-05] MEDS: Acetaminophen 325 MG TABLET PO PRN (14:58)
[2020-01-05] MEDS: Furosemide 40 MG/4 ML VIAL IVP SCH (22:38)
[2020-01-06] MEDS: Ipratropium/Albuterol Neb 3 ML IH SCH ×4 (03:54→22:14)
[2020-01-06] MEDS: *HR* Heparin 5,000 UNIT/ML VIAL SQ SCH ×2 (06:21→15:16)
[2020-01-06] MEDS: Furosemide 40 MG/4 ML VIAL IVP SCH (09:39)
[2020-01-06] MEDS: Aspirin Enteric Coated 81 MG Tablet PO SCH (09:41)
[2020-01-06] MEDS: Metoprolol XL (24 HR) Succ 50 MG TAB.ER.24H PO SCH ×2 (09:41→09:55)
[2020-01-06] MEDS: Loratadine 10 MG TABLET PO SCH ×2 (09:41→09:55)
[2020-01-06] MEDS: lisinopriL 10 MG TABLET PO SCH ×2 (09:41→09:55)
[2020-01-06] MEDS: FLUoxetine 20 MG CAPSULE PO SCH (09:41)
[2020-01-06 09:43] LABS: Calcium 9.1 mg/dL (8.6-10.3); Magnesium 1.5 mg/dL (1.6-2.6); Phosphorous 4.2 mg/dL (2.7-4.5); Potassium 4.1 mEq/L (3.5-5.1)
[2020-01-06] MEDS ORDERED: 0.9 % Sodium Chloride 250 ML IV ONE (11:26)
[2020-01-06] MEDS: Budesonide/Formoterol 160/4.5 1 PUFF INH IH SCH (22:14)
[2020-01-07 02:22] LABS: Calcium 8.7 mg/dL (8.6-10.3); Magnesium 1.5 mg/dL (1.6-2.6); Potassium 3.6 mEq/L (3.5-5.1)
[2020-01-07] MEDS: Ipratropium/Albuterol Neb 3 ML IH SCH ×4 (03:59→21:39)
[2020-01-07] MEDS: *HR* Heparin 5,000 UNIT/ML VIAL SQ SCH ×2 (05:44→15:59)
[2020-01-07] MEDS: Metoprolol XL (24 HR) Succ 50 MG TAB.ER.24H PO SCH ×2 (07:18→09:40)
[2020-01-07] MEDS: FLUoxetine 20 MG CAPSULE PO SCH (09:39)
[2020-01-07] MEDS: Loratadine 10 MG TABLET PO SCH (09:39)
[2020-01-07] MEDS: Aspirin Enteric Coated 81 MG Tablet PO SCH (09:39)
[2020-01-07] MEDS: Budesonide/Formoterol 160/4.5 1 PUFF INH IH SCH (21:38)
[2020-01-08 02:30] LABS: Calcium 9.2 mg/dL (8.6-10.3); Magnesium 1.8 mg/dL (1.6-2.6); Phosphorous 3.4 mg/dL (2.7-4.5); Potassium 4.2 mEq/L (3.5-5.1)
[2020-01-08] MEDS: Ipratropium/Albuterol Neb 3 ML IH SCH ×3 (03:18→22:25)
[2020-01-08] MEDS: *HR* Heparin 5,000 UNIT/ML VIAL SQ SCH ×2 (05:41→16:56)
[2020-01-08] MEDS ORDERED: FLUoxetine 20 MG CAPSULE PO ONE (10:11)
[2020-01-08] MEDS ORDERED: Metoprolol XL (24 HR) Succ 50 MG TAB.ER.24H PO ONE (10:11)
[2020-01-08] MEDS ORDERED: Aspirin Enteric Coated 81 MG Tablet PO ONE (10:11)
[2020-01-08] MEDS ORDERED: Loratadine 10 MG TABLET ONE (10:11)
[2020-01-08] MEDS ORDERED: Ipratropium/Albuterol Neb 3 ML ONE ×2 (10:11→15:23)
[2020-01-08] MEDS: Aspirin Enteric Coated 81 MG Tablet PO SCH (16:09)
[2020-01-08] MEDS: Loratadine 10 MG TABLET PO SCH (16:09)
[2020-01-08] MEDS: FLUoxetine 20 MG CAPSULE PO SCH (16:10)
[2020-01-08] MEDS: Metoprolol XL (24 HR) Succ 50 MG TAB.ER.24H PO SCH (16:10)
[2020-01-08] MEDS: Budesonide/Formoterol 160/4.5 1 PUFF INH IH SCH (22:25)
[2020-01-09] MEDS: Ipratropium/Albuterol Neb 3 ML IH SCH ×2 (03:54→10:01)
[2020-01-09] MEDS: *HR* Heparin 5,000 UNIT/ML VIAL SQ SCH (05:04)
[2020-01-09] MEDS: Aspirin Enteric Coated 81 MG Tablet PO SCH (08:43)
[2020-01-09] MEDS: Metoprolol XL (24 HR) Succ 50 MG TAB.ER.24H PO SCH (08:43)
[2020-01-09] MEDS: FLUoxetine 20 MG CAPSULE PO SCH (08:43)
[2020-01-09] MEDS: Loratadine 10 MG TABLET PO SCH (08:43)
[2020-01-09 08:51] LABS: BUN/Creatinine Ratio 37 (6-26); Blood Urea Nitrogen 32 mg/dL (8-23); Calcium 9.4 mg/dL (8.6-10.3); Carbon Dioxide 30 mEq/L (23-29); Chloride 100 mEq/L (98-107); Glucose 103 mg/dL (70-105); Osmolality,Calculated 293 (280-300); Potassium 4.2 mEq/L (3.5-5.1); Sodium 138 mEq/L (136-145); eGFR For African Americans > 60 (> 60); eGFR For Non-African Americans > 60 (> 60)
[2020-01-09 11:03] VITALS: BP 115/70
== END 2020-01-09 13:47 | disposition home or self-care (01) | DRG 280 ==
LOC: EMEROOARM 09:50 → 2NENU 09:50 → SUATTDRO 13:25 → 3BNU 13:29
PROVIDERS: ADMIT Internal Medicine; ATTEND Internal Medicine

== ENCOUNTER 2021-01-15 16:02 | Inpatient (IN) ==
[2021-01-15 16:45] LABS: Basophils % 0.6 %; Eosinophils # 0.1 K/mcL (0.0-0.6); Eosinophils % 1.5 %; Hematocrit 37.7 % (35.3-44.9); Hemoglobin 11.6 g/dL (11.5-15.4); Immature Granulocytes % 0.5 % (0-4); Lymphocytes % 14.9 %; Mean Corpuscular HGB Conc 30.8 g/dL (31.6-35.5); Mean Corpuscular Hemoglobin 31.4 pg (28.0-33.3); Mean Corpuscular Volume 102.2 fL (83.0-100.0); Mean Platelet Volume 10.9 fL (9.4-12.4); Monocytes # 0.6 K/mcL (0.0-1.3); Monocytes % 9.6 %; Neutrophils # 4.7 K/mcL (1.6-8.9); Platelet Count 143 K/mcL (140-400); Red Blood Count 3.69 M/mcL (3.82-4.97); Red Cell Distribution Width 14.9 % (11.5-14.5); Segmented Neutrophils % 72.9 %; White Blood Count 6.5 K/mcL (4.3-11.1)
[2021-01-15 17:46] LABS: Calcium 9.7 mg/dL (8.6-10.3); Potassium 4.1 mEq/L (3.5-5.1); Troponin I 0.07 ng/mL (< 0.04)
[2021-01-15] MEDS ORDERED: Furosemide 40 MG/4 ML VIAL IVP ONE (17:55)
[2021-01-15] MEDS ORDERED: *HR* Metoprolol 5 MG/5 ML VIAL IVP ONE (18:01)
[2021-01-15] MEDS ORDERED: Naloxone 0.4 MG/ML INJ IVP PRN (18:45)
[2021-01-15] MEDS ORDERED: Ondansetron 4 MG/2 ML VIAL IVP PRN (18:45)
[2021-01-15] MEDS ORDERED: Perflutren Lipid Microsphere 1.3 ML in 0.9 % Sodium Chloride 8.7 ML IVP PRN (19:16)
[2021-01-15] MEDS: hydroCHLOROthiazide 25 MG TABLET PO SCH (21:25)
[2021-01-16 02:06] LABS: Basophils % 0.6 %; Eosinophils # 0.1 K/mcL (0.0-0.6); Eosinophils % 1.8 %; Hematocrit 33.4 % (35.3-44.9); Hemoglobin 10.4 g/dL (11.5-15.4); Immature Granulocytes % 0.2 % (0-4); Lymphocytes % 20.5 %; Mean Corpuscular HGB Conc 31.1 g/dL (31.6-35.5); Mean Corpuscular Hemoglobin 31.7 pg (28.0-33.3); Mean Corpuscular Volume 101.8 fL (83.0-100.0); Mean Platelet Volume 10.8 fL (9.4-12.4); Monocytes # 0.6 K/mcL (0.0-1.3); Monocytes % 12.4 %; Neutrophils # 3.3 K/mcL (1.6-8.9); Platelet Count 132 K/mcL (140-400); Red Blood Count 3.28 M/mcL (3.82-4.97); Red Cell Distribution Width 14.9 % (11.5-14.5); Segmented Neutrophils % 64.5 %; White Blood Count 5.1 K/mcL (4.3-11.1)
[2021-01-16 02:23] LABS: Calcium 9.4 mg/dL (8.6-10.3); Potassium 4.3 mEq/L (3.5-5.1)
[2021-01-16 02:28] LABS: Troponin I 0.04 ng/mL (< 0.04)
[2021-01-16] MEDS: *HR* Heparin 5,000 UNIT/ML VIAL SQ SCH ×2 (05:21→17:25)
[2021-01-16] MEDS ORDERED: Furosemide 40 MG/4 ML VIAL IVP SCH (09:00)
[2021-01-16] MEDS ORDERED: lisinopriL 10 MG TABLET PO SCH (09:00)
[2021-01-16] MEDS: hydroCHLOROthiazide 25 MG TABLET PO SCH (10:44)
[2021-01-16] MEDS: FLUoxetine 20 MG CAPSULE PO SCH (10:45)
[2021-01-16] MEDS: Metoprolol XL (24 HR) Succ 50 MG TAB.ER.24H PO SCH (10:45)
[2021-01-16] MEDS: Aspirin Enteric Coated 81 MG Tablet PO SCH (10:45)
[2021-01-16] MEDS: Nystatin POWDER 30 GM BOTTLE TP SCH ×2 (10:45→20:22)
[2021-01-16] MEDS ORDERED: Furosemide 20 MG/2 ML VIAL IVP SCH (17:00)
[2021-01-16] MEDS: Loratadine 10 MG TABLET PO SCH (17:27)
[2021-01-16] MEDS: Budesonide/Formoterol 160/4.5 1 PUFF INH IH SCH ×2 (17:35→19:57)
[2021-01-17 01:36] LABS: Basophils % 0.4 %; Eosinophils # 0.1 K/mcL (0.0-0.6); Eosinophils % 2.1 %; Hematocrit 32.4 % (35.3-44.9); Immature Granulocytes % 0.2 % (0-4); Lymphocytes # 0.9 K/mcL (0.6-4.6); Lymphocytes % 18.1 %; Mean Corpuscular HGB Conc 30.9 g/dL (31.6-35.5); Mean Corpuscular Hemoglobin 31.1 pg (28.0-33.3); Mean Corpuscular Volume 100.6 fL (83.0-100.0); Mean Platelet Volume 10.7 fL (9.4-12.4); Monocytes # 0.6 K/mcL (0.0-1.3); Monocytes % 11.9 %; Neutrophils # 3.5 K/mcL (1.6-8.9); Platelet Count 130 K/mcL (140-400); Red Blood Count 3.22 M/mcL (3.82-4.97); Red Cell Distribution Width 14.7 % (11.5-14.5); Segmented Neutrophils % 67.3 %; White Blood Count 5.1 K/mcL (4.3-11.1)
[2021-01-17 01:55] LABS: % Iron Saturation 7 % (15-50); Iron 30 mcg/dL (50-170); Transferrin 309 mg/dL (203-362)
[2021-01-17 01:57] LABS: Calcium 9.2 mg/dL (8.6-10.3); Magnesium 1.5 mg/dL (1.6-2.6)
[2021-01-17 02:20] LABS: Folate > 22.3 ng/mL (3.0-16.0)
[2021-01-17] MEDS: *HR* Heparin 5,000 UNIT/ML VIAL SQ SCH ×2 (05:13→16:58)
[2021-01-17] MEDS: Budesonide/Formoterol 160/4.5 1 PUFF INH IH SCH ×2 (07:25→20:47)
[2021-01-17] MEDS ORDERED: Furosemide 40 MG/4 ML VIAL IVP SCH (07:30)
[2021-01-17] MEDS: Metoprolol XL (24 HR) Succ 50 MG TAB.ER.24H PO SCH (07:48)
[2021-01-17] MEDS: FLUoxetine 20 MG CAPSULE PO SCH (07:49)
[2021-01-17] MEDS: Nystatin POWDER 30 GM BOTTLE TP SCH ×2 (07:49→20:52)
[2021-01-17] MEDS: Aspirin Enteric Coated 81 MG Tablet PO SCH (07:49)
[2021-01-17 13:09] LABS: Vitamin B12 > 1500 pg/mL (250-1100)
[2021-01-17] MEDS: Loratadine 10 MG TABLET PO SCH (16:58)
[2021-01-17] MEDS ORDERED: Furosemide 40 MG TABLET PO SCH (17:00)
[2021-01-18 03:14] LABS: Hematocrit 32.5 % (35.3-44.9); Hemoglobin 10.3 g/dL (11.5-15.4); Mean Corpuscular HGB Conc 31.7 g/dL (31.6-35.5); Mean Corpuscular Hemoglobin 32.2 pg (28.0-33.3); Mean Corpuscular Volume 101.6 fL (83.0-100.0); Mean Platelet Volume 10.8 fL (9.4-12.4); Platelet Count 132 K/mcL (140-400); Red Cell Distribution Width 14.6 % (11.5-14.5); White Blood Count 5.5 K/mcL (4.3-11.1)
[2021-01-18 03:35] LABS: Calcium 9.1 mg/dL (8.6-10.3); Potassium 3.8 mEq/L (3.5-5.1)
[2021-01-18] MEDS: *HR* Heparin 5,000 UNIT/ML VIAL SQ SCH ×2 (05:20→17:07)
[2021-01-18] MEDS: Budesonide/Formoterol 160/4.5 1 PUFF INH IH SCH ×2 (07:47→20:10)
[2021-01-18] MEDS: Metoprolol XL (24 HR) Succ 50 MG TAB.ER.24H PO SCH (10:09)
[2021-01-18] MEDS: FLUoxetine 20 MG CAPSULE PO SCH (10:09)
[2021-01-18] MEDS: Aspirin Enteric Coated 81 MG Tablet PO SCH (10:09)
[2021-01-18] MEDS: Nystatin POWDER 30 GM BOTTLE TP SCH (10:09)
[2021-01-18] MEDS ORDERED: *HR* Metoprolol 5 MG/5 ML VIAL IVP ONE (12:49)
[2021-01-18] MEDS: Loratadine 10 MG TABLET PO SCH (17:06)
[2021-01-18 21:59] LABS: Bacteria,Urine Few per hpf (None-Few); Bilirubin,Urine Negative (Negative); Blood,Urine Negative (Negative); Clarity,Urine Clear (Clear); Color,Urine Light-Yellow (Yellow); Glucose,Urine (UA) Normal (Normal); Ketones,Urine Negative (Negative); Leukocyte Esterase,Urine Large (Negative); Nitrite,Urine Negative (Negative); PH,Urine 5.5 pH Units (5.0-8.0); Protein,Urine Trace mg/dL (Neg-Trace); RBC,Urine 0-3 per hpf (0-3); Squamous Epithelial Cell,Urine Few per hpf (None-Few); Urobilinogen,Urine Normal (Normal); WBC,Urine 15-30 per hpf (0-3)
[2021-01-19] MEDS ORDERED: Acetaminophen 325 MG TABLET PO PRN (01:34)
[2021-01-19] MEDS: Nystatin POWDER 30 GM BOTTLE TP SCH ×2 (01:59→07:36)
[2021-01-19 06:00] LABS: Hematocrit 31.9 % (35.3-44.9); Hemoglobin 10.2 g/dL (11.5-15.4); Mean Corpuscular Hemoglobin 32.1 pg (28.0-33.3); Mean Corpuscular Volume 100.3 fL (83.0-100.0); Mean Platelet Volume 10.7 fL (9.4-12.4); Platelet Count 121 K/mcL (140-400); Red Blood Count 3.18 M/mcL (3.82-4.97); Red Cell Distribution Width 14.6 % (11.5-14.5); White Blood Count 5.4 K/mcL (4.3-11.1)
[2021-01-19 06:19] LABS: Calcium 9.2 mg/dL (8.6-10.3); Potassium 3.4 mEq/L (3.5-5.1)
[2021-01-19] MEDS: *HR* Heparin 5,000 UNIT/ML VIAL SQ SCH (06:51)
[2021-01-19] MEDS: Metoprolol XL (24 HR) Succ 50 MG TAB.ER.24H PO SCH (07:36)
[2021-01-19] MEDS: FLUoxetine 20 MG CAPSULE PO SCH (07:36)
[2021-01-19] MEDS: Aspirin Enteric Coated 81 MG Tablet PO SCH (07:36)
[2021-01-19] MEDS ORDERED: lisinopriL 10 MG TABLET PO SCH (09:00)
[2021-01-19] MEDS ORDERED: Triamterene/HCTZ 75/50 mg TABLET PO SCH (09:00)
[2021-01-19] MEDS: Budesonide/Formoterol 160/4.5 1 PUFF INH IH SCH (09:49)
[2021-01-19 11:37] VITALS: BP 110/63
== END 2021-01-19 15:17 | disposition home health service (06) | DRG 682 ==
LOC: EMEROOARM 16:02 → 2ANU 16:02 → SUATTDRO 18:15 → 2ANU 18:41 → SUATTDRO 01-16 15:30
PROVIDERS: ADMIT Internal Medicine; ATTEND Family Medicine

== ENCOUNTER 2021-01-26 16:40 | Observation (INO) ==
[2021-01-26 17:56] LABS: Basophils % 0.5 %; Eosinophils # 0.1 K/mcL (0.0-0.6); Hematocrit 36.1 % (35.3-44.9); Hemoglobin 11.3 g/dL (11.5-15.4); Immature Granulocytes % 0.3 % (0-4); Lymphocytes # 0.8 K/mcL (0.6-4.6); Lymphocytes % 13.3 %; Mean Corpuscular HGB Conc 31.3 g/dL (31.6-35.5); Mean Corpuscular Hemoglobin 31.7 pg (28.0-33.3); Mean Corpuscular Volume 101.1 fL (83.0-100.0); Mean Platelet Volume 10.6 fL (9.4-12.4); Monocytes # 0.5 K/mcL (0.0-1.3); Monocytes % 9.4 %; Neutrophils # 4.3 K/mcL (1.6-8.9); Platelet Count 158 K/mcL (140-400); Red Blood Count 3.57 M/mcL (3.82-4.97); Segmented Neutrophils % 75.5 %; White Blood Count 5.7 K/mcL (4.3-11.1)
[2021-01-26 18:03] LABS: INR 1.3; Prothrombin Time 14.7 Seconds (9.4-12.1)
[2021-01-26 18:20] LABS: Magnesium 1.9 mg/dL (1.6-2.6); Potassium 3.7 mEq/L (3.5-5.1); Troponin I 0.05 ng/mL (< 0.04)
[2021-01-26] MEDS ORDERED: Isovue-370 500 ML BOTTLE IVP ONE (18:55)
[2021-01-26 19:08] LABS: Bilirubin,Urine Negative (Negative); Blood,Urine Negative (Negative); Clarity,Urine Clear (Clear); Color,Urine Yellow (Yellow); Glucose,Urine (UA) Normal (Normal); Hyaline Casts,Urine Few per lpf (None Seen); Ketones,Urine Negative (Negative); Leukocyte Esterase,Urine Small (Negative); Mucus,Urine Few per lpf (None-Few); Nitrite,Urine Negative (Negative); PH,Urine 5.5 pH Units (5.0-8.0); Protein,Urine 30 mg/dL (Neg-Trace); RBC,Urine 0-3 per hpf (0-3); Specific Gravity,Urine 1.026 (1.010-1.025); Squamous Epithelial Cell,Urine Few per hpf (None-Few); Urobilinogen,Urine Normal (Normal); WBC,Urine 15-30 per hpf (0-3)
[2021-01-26] MEDS ORDERED: Ondansetron 4 MG/2 ML VIAL IVP PRN (21:30)
[2021-01-26] MEDS ORDERED: Naloxone 0.4 MG/ML INJ IVP PRN (21:30)
[2021-01-26] MEDS: Furosemide 20 MG/2 ML VIAL IVP SCH (22:02)
[2021-01-27] MEDS: *HR* Heparin 5,000 UNIT/ML VIAL SQ SCH ×2 (05:11→18:34)
[2021-01-27 06:04] LABS: Hematocrit 33.2 % (35.3-44.9); Hemoglobin 10.2 g/dL (11.5-15.4); Mean Corpuscular HGB Conc 30.7 g/dL (31.6-35.5); Mean Corpuscular Hemoglobin 31.5 pg (28.0-33.3); Mean Corpuscular Volume 102.5 fL (83.0-100.0); Mean Platelet Volume 10.9 fL (9.4-12.4); Platelet Count 148 K/mcL (140-400); Red Blood Count 3.24 M/mcL (3.82-4.97); White Blood Count 5.2 K/mcL (4.3-11.1)
[2021-01-27 06:23] LABS: Calcium 9.8 mg/dL (8.6-10.3); Potassium 3.6 mEq/L (3.5-5.1)
[2021-01-27] MEDS: Budesonide/Formoterol 160/4.5 1 PUFF INH IH SCH (07:31)
[2021-01-27] MEDS: FLUoxetine 20 MG CAPSULE PO SCH (08:19)
[2021-01-27] MEDS: Furosemide 20 MG/2 ML VIAL IVP SCH (08:19)
[2021-01-27] MEDS: Magnesium Oxide 400 MG TABLET PO SCH (08:19)
[2021-01-27] MEDS: Metoprolol XL (24 HR) Succ 50 MG TAB.ER.24H PO SCH ×2 (08:19→21:31)
[2021-01-27] MEDS: Aspirin Enteric Coated 81 MG Tablet PO SCH (08:19)
[2021-01-27] MEDS: Multivit/Ca/Min/Fe/FA 1 TAB TABLET PO SCH (08:20)
[2021-01-27] MEDS: Loratadine 10 MG TABLET PO SCH (18:34)
[2021-01-28 03:32] LABS: Basophils % 0.8 %; Eosinophils # 0.1 K/mcL (0.0-0.6); Eosinophils % 2.7 %; Hematocrit 33.6 % (35.3-44.9); Hemoglobin 10.3 g/dL (11.5-15.4); Immature Granulocytes % 0.2 % (0-4); Lymphocytes # 1.1 K/mcL (0.6-4.6); Lymphocytes % 20.3 %; Mean Corpuscular HGB Conc 30.7 g/dL (31.6-35.5); Mean Corpuscular Hemoglobin 31.4 pg (28.0-33.3); Mean Corpuscular Volume 102.4 fL (83.0-100.0); Mean Platelet Volume 10.6 fL (9.4-12.4); Monocytes # 0.7 K/mcL (0.0-1.3); Monocytes % 13.4 %; Neutrophils # 3.3 K/mcL (1.6-8.9); Platelet Count 143 K/mcL (140-400); Red Blood Count 3.28 M/mcL (3.82-4.97); Red Cell Distribution Width 14.9 % (11.5-14.5); Segmented Neutrophils % 62.6 %; White Blood Count 5.2 K/mcL (4.3-11.1)
[2021-01-28 03:45] LABS: Calcium 9.6 mg/dL (8.6-10.3); Potassium 3.6 mEq/L (3.5-5.1)
[2021-01-28] MEDS: *HR* Heparin 5,000 UNIT/ML VIAL SQ SCH ×2 (05:05→18:26)
[2021-01-28] MEDS: Budesonide/Formoterol 160/4.5 1 PUFF INH IH SCH (07:34)
[2021-01-28] MEDS: Aspirin Enteric Coated 81 MG Tablet PO SCH (08:07)
[2021-01-28] MEDS: FLUoxetine 20 MG CAPSULE PO SCH (08:07)
[2021-01-28] MEDS: Magnesium Oxide 400 MG TABLET PO SCH (08:07)
[2021-01-28] MEDS: Multivit/Ca/Min/Fe/FA 1 TAB TABLET PO SCH (08:07)
[2021-01-28] MEDS: Metoprolol XL (24 HR) Succ 50 MG TAB.ER.24H PO SCH ×2 (08:07→20:03)
[2021-01-28] MEDS: Furosemide 20 MG/2 ML VIAL IVP SCH (08:59)
[2021-01-28] MEDS: Loratadine 10 MG TABLET PO SCH (18:26)
[2021-01-29] MEDS: *HR* Heparin 5,000 UNIT/ML VIAL SQ SCH ×2 (04:59→16:51)
[2021-01-29 06:09] LABS: Basophils % 0.5 %; Eosinophils # 0.1 K/mcL (0.0-0.6); Eosinophils % 2.3 %; Hematocrit 33.7 % (35.3-44.9); Hemoglobin 10.5 g/dL (11.5-15.4); Immature Granulocytes % 0.4 % (0-4); Lymphocytes % 18.2 %; Mean Corpuscular HGB Conc 31.2 g/dL (31.6-35.5); Mean Corpuscular Hemoglobin 32.2 pg (28.0-33.3); Mean Corpuscular Volume 103.4 fL (83.0-100.0); Mean Platelet Volume 10.7 fL (9.4-12.4); Monocytes # 0.7 K/mcL (0.0-1.3); Monocytes % 13.2 %; Neutrophils # 3.7 K/mcL (1.6-8.9); Platelet Count 147 K/mcL (140-400); Red Blood Count 3.26 M/mcL (3.82-4.97); Red Cell Distribution Width 14.9 % (11.5-14.5); Segmented Neutrophils % 65.4 %; White Blood Count 5.6 K/mcL (4.3-11.1)
[2021-01-29 06:42] LABS: Calcium 9.6 mg/dL (8.6-10.3); Potassium 3.3 mEq/L (3.5-5.1)
[2021-01-29] MEDS: Budesonide/Formoterol 160/4.5 1 PUFF INH IH SCH (07:28)
[2021-01-29] MEDS: FLUoxetine 20 MG CAPSULE PO SCH (07:37)
[2021-01-29] MEDS: Aspirin Enteric Coated 81 MG Tablet PO SCH (07:37)
[2021-01-29] MEDS: Multivit/Ca/Min/Fe/FA 1 TAB TABLET PO SCH (07:37)
[2021-01-29] MEDS: Metoprolol XL (24 HR) Succ 50 MG TAB.ER.24H PO SCH ×2 (07:38→21:51)
[2021-01-29] MEDS: Magnesium Oxide 400 MG TABLET PO SCH (07:38)
[2021-01-29] MEDS: Furosemide 20 MG/2 ML VIAL IVP SCH (07:39)
[2021-01-29] MEDS ORDERED: Potassium Chloride Elixir 20 MEQ/15 ML UDC PO ONE (08:53)
[2021-01-29] MEDS: Loratadine 10 MG TABLET PO SCH (16:51)
[2021-01-30] MEDS ORDERED: Albuterol 2.5 MG/3 ML NEBULIZER IH PRN (03:07)
[2021-01-30] MEDS: *HR* Heparin 5,000 UNIT/ML VIAL SQ SCH ×2 (05:35→18:11)
[2021-01-30 07:25] LABS: Hematocrit 34.9 % (35.3-44.9); Hemoglobin 10.8 g/dL (11.5-15.4); Mean Corpuscular HGB Conc 30.9 g/dL (31.6-35.5); Mean Corpuscular Hemoglobin 31.5 pg (28.0-33.3); Mean Corpuscular Volume 101.7 fL (83.0-100.0); Mean Platelet Volume 10.5 fL (9.4-12.4); Platelet Count 149 K/mcL (140-400); Red Blood Count 3.43 M/mcL (3.82-4.97); Red Cell Distribution Width 15.2 % (11.5-14.5); White Blood Count 5.7 K/mcL (4.3-11.1)
[2021-01-30 08:09] LABS: Calcium 9.7 mg/dL (8.6-10.3); Magnesium 1.8 mg/dL (1.6-2.6); Potassium 3.5 mEq/L (3.5-5.1)
[2021-01-30] MEDS: Budesonide/Formoterol 160/4.5 1 PUFF INH IH SCH (08:35)
[2021-01-30] MEDS: Aspirin Enteric Coated 81 MG Tablet PO SCH (09:47)
[2021-01-30] MEDS: FLUoxetine 20 MG CAPSULE PO SCH (09:47)
[2021-01-30] MEDS: Furosemide 40 MG TABLET PO SCH (09:47)
[2021-01-30] MEDS: Magnesium Oxide 400 MG TABLET PO SCH (09:47)
[2021-01-30] MEDS: Multivit/Ca/Min/Fe/FA 1 TAB TABLET PO SCH (09:47)
[2021-01-30] MEDS: Metoprolol XL (24 HR) Succ 50 MG TAB.ER.24H PO SCH ×2 (09:47→20:01)
[2021-01-30] MEDS: Acetaminophen 325 MG TABLET PO PRN (12:09)
[2021-01-30] MEDS: Isosorbide MONOnitrate (24 HR) 30 MG TAB.ER.24H PO SCH (13:28)
[2021-01-30] MEDS: Loratadine 10 MG TABLET PO SCH (18:12)
[2021-01-30] MEDS: Melatonin 3 MG TABLET PO PRN (20:01)
[2021-01-31 03:33] LABS: Hemoglobin 9.7 g/dL (11.5-15.4); Mean Corpuscular HGB Conc 31.3 g/dL (31.6-35.5); Mean Corpuscular Hemoglobin 31.8 pg (28.0-33.3); Mean Corpuscular Volume 101.6 fL (83.0-100.0); Mean Platelet Volume 10.4 fL (9.4-12.4); Platelet Count 142 K/mcL (140-400); Red Blood Count 3.05 M/mcL (3.82-4.97); Red Cell Distribution Width 15.3 % (11.5-14.5); White Blood Count 5.7 K/mcL (4.3-11.1)
[2021-01-31 03:51] LABS: Calcium 9.2 mg/dL (8.6-10.3); Magnesium 1.7 mg/dL (1.6-2.6); Potassium 3.6 mEq/L (3.5-5.1)
[2021-01-31] MEDS: *HR* Heparin 5,000 UNIT/ML VIAL SQ SCH ×2 (05:08→18:10)
[2021-01-31] MEDS: Budesonide/Formoterol 160/4.5 1 PUFF INH IH SCH (07:23)
[2021-01-31] MEDS: FLUoxetine 20 MG CAPSULE PO SCH (08:19)
[2021-01-31] MEDS: Isosorbide MONOnitrate (24 HR) 30 MG TAB.ER.24H PO SCH (08:19)
[2021-01-31] MEDS: Furosemide 40 MG TABLET PO SCH (08:19)
[2021-01-31] MEDS: Metoprolol XL (24 HR) Succ 50 MG TAB.ER.24H PO SCH ×2 (08:19→21:10)
[2021-01-31] MEDS: Multivit/Ca/Min/Fe/FA 1 TAB TABLET PO SCH (08:19)
[2021-01-31] MEDS: Aspirin Enteric Coated 81 MG Tablet PO SCH (08:19)
[2021-01-31] MEDS: Magnesium Oxide 400 MG TABLET PO SCH (08:19)
[2021-01-31] MEDS: Acetaminophen 325 MG TABLET PO PRN (12:28)
[2021-01-31] MEDS: Loratadine 10 MG TABLET PO SCH (18:13)
[2021-01-31] MEDS: Melatonin 3 MG TABLET PO PRN (21:10)
[2021-02-01 05:20] LABS: Hematocrit 33.2 % (35.3-44.9); Hemoglobin 10.4 g/dL (11.5-15.4); Mean Corpuscular HGB Conc 31.3 g/dL (31.6-35.5); Mean Corpuscular Hemoglobin 32.6 pg (28.0-33.3); Mean Corpuscular Volume 104.1 fL (83.0-100.0); Mean Platelet Volume 10.4 fL (9.4-12.4); Platelet Count 145 K/mcL (140-400); Red Blood Count 3.19 M/mcL (3.82-4.97); Red Cell Distribution Width 15.3 % (11.5-14.5); White Blood Count 6.2 K/mcL (4.3-11.1)
[2021-02-01 05:38] LABS: Calcium 9.5 mg/dL (8.6-10.3); Magnesium 1.8 mg/dL (1.6-2.6)
[2021-02-01] MEDS: *HR* Heparin 5,000 UNIT/ML VIAL SQ SCH ×2 (05:57→16:47)
[2021-02-01] MEDS: Budesonide/Formoterol 160/4.5 1 PUFF INH IH SCH (07:57)
[2021-02-01] MEDS: Multivit/Ca/Min/Fe/FA 1 TAB TABLET PO SCH (09:16)
[2021-02-01] MEDS: FLUoxetine 20 MG CAPSULE PO SCH (09:16)
[2021-02-01] MEDS: Aspirin Enteric Coated 81 MG Tablet PO SCH (09:16)
[2021-02-01] MEDS: Magnesium Oxide 400 MG TABLET PO SCH (09:16)
[2021-02-01] MEDS: Furosemide 40 MG TABLET PO SCH (09:17)
[2021-02-01] MEDS: Metoprolol XL (24 HR) Succ 50 MG TAB.ER.24H PO SCH ×2 (09:17→19:52)
[2021-02-01] MEDS: Isosorbide MONOnitrate (24 HR) 30 MG TAB.ER.24H PO SCH (09:17)
[2021-02-01] MEDS: Loratadine 10 MG TABLET PO SCH (16:47)
[2021-02-01 19:07] VITALS: BP 110/67
[2021-02-01 19:36] LABS: Adenovirus Not Detected (Not Detect); Bordetella Pertussis Not Detected (Not Detect); Chlamydophila pneumoniae Not Detected (Not Detect); Coronavirus 229E Not Detected (Not Detect); Coronavirus HKU1 Not Detected (Not Detect); Coronavirus NL63 Not Detected (Not Detect); Coronavirus OC43 Not Detected (Not Detect); Human Metapneumovirus Not Detected (Not Detect); Human Rhinovirus/Enterovirus Not Detected (Not Detect); Influenza A Subtype 2009 H1 Not Detected (Not Detect); Influenza B Not Detected (Not Detect); Mycoplasma pneumoniae Not Detected (Not Detect); Parainfluenza Virus 1 Not Detected (Not Detect); Parainfluenza Virus 2 Not Detected (Not Detect); Parainfluenza Virus 3 Not Detected (Not Detect); Parainfluenza Virus 4 Not Detected (Not Detect); Respiratory Syncytial Virus Not Detected (Not Detect); SARS-CoV-2 Not Detected (Not Detect)
== END 2021-02-01 21:10 | disposition other institution (70) ==
LOC: 3BNU 16:40 → EMEROOARM 16:40 → SUATTDRO 20:36 → 3BNU 21:25
PROVIDERS: ADMIT Internal Medicine; ATTEND Internal Medicine

== ENCOUNTER 2022-03-10 19:02 | Inpatient (IN) ==
[2022-03-10] MEDS ORDERED: 0.9 % Sodium Chloride 1,000 ML IVC ONE ×2 (19:29→21:24)
[2022-03-10] MEDS ORDERED: Ondansetron 4 MG/2 ML VIAL IVP ONE (19:30)
[2022-03-10] MEDS ORDERED: *HR* FentaNYL (PF) 100 MCG/2 ML VIAL IVP ONE (19:31)
[2022-03-10 20:06] LABS: Hematocrit 48.7 % (35.3-44.9); Lymphocytes # 0.1 K/mcL (0.6-4.6); Lymphocytes % 8.5 %; Mean Corpuscular HGB Conc 32.9 g/dL (31.6-35.5); Mean Corpuscular Volume 103.4 fL (83.0-100.0); Mean Platelet Volume 10.2 fL (9.4-12.4); Monocytes # 0.1 K/mcL (0.0-1.3); Monocytes % 3.8 %; Neutrophils # 1.1 K/mcL (1.6-8.9); Platelet Count 172 K/mcL (140-400); Red Blood Count 4.71 M/mcL (3.82-4.97); Red Cell Distribution Width 14.5 % (11.5-14.5); Segmented Neutrophils % 87.7 %; White Blood Count 1.3 K/mcL (4.3-11.1)
[2022-03-10 20:13] LABS: INR 1.5; Prothrombin Time 17.1 Seconds (9.4-12.1)
[2022-03-10 20:15] LABS: Activated Partial Thrombo Time 30.1 Seconds (26.0-36.0)
[2022-03-10 20:25] LABS: Calcium 9.6 mg/dL (8.6-10.3); Magnesium 2.1 mg/dL (1.6-2.6); Potassium 3.1 mEq/L (3.5-5.1)
[2022-03-10 20:33] LABS: Troponin I 0.11 ng/mL (< 0.04)
[2022-03-10 20:40] LABS: Platelet Estimate Normal (Normal)
[2022-03-10 20:53] LABS: Thyroid Stimulating Hormone 3.647 mcIU/mL (0.340-5.600)
[2022-03-10] MEDS ORDERED: 0.9 % Sodium Chloride 500 ML ONE (21:00)
[2022-03-10] MEDS: DilTIAZem 50 MG/50 ML IV.SOLN IVC SCH (21:05)
[2022-03-10] MEDS ORDERED: 0.9 % Sodium Chloride 500 ML IVC ONE (21:25)
[2022-03-10] MEDS ORDERED: Acetaminophen IV 1,000 MG/100 ML BAG IVPB ONE (22:06)
[2022-03-10 22:26] LABS: Albumin 3.7 g/dL (3.5-5.7); Albumin/Globulin Ratio 1.1 (1.1-2.2); Bilirubin,Direct 0.7 mg/dL (0.0-0.2); Bilirubin,Indirect 1.1 mg/dL (0.0-1.0); Bilirubin,Total 1.8 mg/dL (0.3-1.0); Globulin 3.4 g/dL (2.4-3.5); Total Protein 7.1 g/dL (6.4-8.9)
[2022-03-10] MEDS ORDERED: Melatonin 3 MG TABLET PO PRN (22:31)
[2022-03-10] MEDS ORDERED: Ondansetron 4 MG/2 ML VIAL IVP PRN (22:31)
[2022-03-10] MEDS ORDERED: Naloxone 0.4 MG/ML INJ IVP PRN (22:31)
[2022-03-10] MEDS ORDERED: *HR* Heparin 5,000 UNIT/ML VIAL IVP PRN ×2 (22:36)
[2022-03-10] MEDS ORDERED: Heparin 25,000UNIT/250ML 1/2NS 25,000 UNIT/250 ML IV.SOLN IVC SCH (22:45)
[2022-03-10] MEDS ORDERED: Perflutren Lipid Microsphere 1.3 ML in 0.9 % Sodium Chloride 8.7 ML IVP PRN (23:20)
[2022-03-10] MEDS: Piperacillin/Tazobactam 3.375 GM in 0.9 % Sodium Chloride Mini Bag 100 ML IVPB SCH (23:52)
[2022-03-10] MEDS: 0.9 % Sodium Chloride 1,000 ML IVC SCH (23:52)
[2022-03-11] MEDS: 0.9 % Sodium Chloride 1,000 ML IVC SCH (01:30)
[2022-03-11] MEDS: Phenylephrine 20 MG in 0.9 % Sodium Chloride 250 ML IVC SCH ×2 (02:02→05:32)
[2022-03-11 02:07] LABS: Basophils % 0.8 %; Red Cell Distribution Width 14.6 % (11.5-14.5)
[2022-03-11 02:09] LABS: Hematocrit 44.9 % (35.3-44.9); Hemoglobin 14.1 g/dL (11.5-15.4); Immature Granulocytes % 1.5 % (0-4); Lymphocytes # 0.2 K/mcL (0.6-4.6); Lymphocytes % 14.6 %; Mean Corpuscular HGB Conc 31.4 g/dL (31.6-35.5); Mean Corpuscular Hemoglobin 33.2 pg (28.0-33.3); Mean Corpuscular Volume 105.6 fL (83.0-100.0); Mean Platelet Volume 10.5 fL (9.4-12.4); Monocytes # 0.2 K/mcL (0.0-1.3); Monocytes % 17.7 %; Neutrophils # 0.9 K/mcL (1.6-8.9); Platelet Count 139 K/mcL (140-400); Red Blood Count 4.25 M/mcL (3.82-4.97); Segmented Neutrophils % 65.4 %; White Blood Count 1.3 K/mcL (4.3-11.1)
[2022-03-11 02:14] LABS: INR 1.8; Prothrombin Time 20.2 Seconds (9.4-12.1)
[2022-03-11 02:20] LABS: Calcium 8.5 mg/dL (8.6-10.3); Magnesium 2.1 mg/dL (1.6-2.6); Potassium 3.2 mEq/L (3.5-5.1)
[2022-03-11 02:33] LABS: Platelet Estimate Normal (Normal)
[2022-03-11] MEDS ORDERED: *HR* Vasopressin 20 UNIT/ML VIAL ONE ×3 (05:15→11:34)
[2022-03-11] MEDS ORDERED: Heparin 1,000 UNITS/500 mL 500 ML ONE (05:17)
[2022-03-11] MEDS ORDERED: *HR* Succinylcholine 200 MG/10 ML VIAL IVP ONE (05:20)
[2022-03-11] MEDS ORDERED: *HR* Rocuronium Bromide 50 MG/5 ML VIAL ONE ×2 (05:20→07:04)
[2022-03-11] MEDS ORDERED: Lidocaine -MPF 2% 2 ML VIAL ONE (05:20)
[2022-03-11] MEDS ORDERED: *HR* Etomidate 40 MG/20 ML VIAL IVP ONE (05:20)
[2022-03-11] MEDS ORDERED: *HR* Midazolam HCl 2 MG/2 ML VIAL ONE (05:28)
[2022-03-11] MEDS ORDERED: *HR* FentaNYL (PF) 100 MCG/2 ML VIAL ONE ×2 (05:28→07:48)
[2022-03-11] MEDS ORDERED: Albumin Human 5% 25.0 GM/500 ML IV.SOLN ONE (05:33)
[2022-03-11] MEDS: Norepinephrine 4 MG/254 ML IV.SOLN IVC SCH ×2 (05:34→12:33)
[2022-03-11] MEDS ORDERED: *HR* Heparin 5,000 UNIT/ML VIAL ONE (06:10)
[2022-03-11] MEDS ORDERED: Ondansetron 4 MG/2 ML VIAL ONE (06:37)
[2022-03-11 07:04] LABS: ABG Base Excess -12 mEq/L (-2 to 3); ABG HCO3 17 mEq/L (21-27); ABG Oxygen Saturation 97 % (95-98); ABG PCO2 50 mmHg (35-45); ABG PH 7.14 pH Units (7.32-7.45); ABG PO2 124 mmHg (85-104); ABG TCO2 18 mEq/L (20-26)
[2022-03-11] MEDS ORDERED: *HR* Cisatracurium 10 MG/5 ML VIAL IV ONE (07:05)
[2022-03-11] MEDS ORDERED: D5% in Water 500 ML ONE (07:21)
[2022-03-11] MEDS ORDERED: *HR* Norepinephrine 4 MG/4 ML VIAL IVC ONE ×2 (07:21→08:24)
[2022-03-11] MEDS ORDERED: *HR* Midazolam HCl 5 MG/5 ML VIAL IVP ONE (07:58)
[2022-03-11] MEDS ORDERED: Piperacillin/Tazobactam 3.375 GM in 0.9 % Sodium Chloride Mini Bag 100 ML IVPB SCH ×2 (08:00→16:00)
[2022-03-11 08:12] LABS: ABG Base Excess -13 mEq/L (-2 to 3); ABG Chloride 117 mEq/L (98-107); ABG Glucose 127 mg/dL (60-95); ABG HCO3 14 mEq/L (21-27); ABG Ionized Calcium 1.11 mmol/L (1.15-1.35); ABG Oxygen Saturation 100 % (95-98); ABG PCO2 34 mmHg (35-45); ABG PH 7.22 pH Units (7.32-7.45); ABG PO2 234 mmHg (85-104); ABG TCO2 15 mEq/L (20-26)
[2022-03-11] MEDS: Piperacillin/Tazobactam 3.375 GM in 0.9 % Sodium Chloride Mini Bag 100 ML IVPB SCH ×2 (08:25→19:46)
[2022-03-11] MEDS: DilTIAZem 50 MG/50 ML IV.SOLN IVC SCH (08:34)
[2022-03-11] MEDS ORDERED: Vancomycin 1,500 MG/265 ML IV.SOLN IVPB ONE (09:00)
[2022-03-11] MEDS ORDERED: Micafungin 100 MG in 0.9 % Sodium Chloride Mini Bag 100 ML IVPB SCH (09:00)
[2022-03-11] MEDS ORDERED: Dexmedetomidine HCl 400 MCG/100 ML MLS IVC SCH (09:45)
[2022-03-11] MEDS ORDERED: FentaNYL (PF) 1,000 MCG/100 ML IV.SOLN IVC SCH (09:45)
[2022-03-11] MEDS ORDERED: Albumin Human 5% 12.5 GM/250 ML IV.SOLN ONE ×3 (10:00→11:24)
[2022-03-11] MEDS ORDERED: Perflutren Lipid Microsphere 1.3 ML in 0.9 % Sodium Chloride 8.7 ML IVP PRN (10:09)
[2022-03-11] MEDS ORDERED: Phenylephrine 20 MG in 0.9 % Sodium Chloride 250 ML IVC SCH (10:09)
[2022-03-11] MEDS ORDERED: 0.9 % Sodium Chloride 1,000 ML IVC SCH (10:09)
[2022-03-11] MEDS ORDERED: Norepinephrine 4 MG/254 ML IV.SOLN IVC SCH (10:09)
[2022-03-11] MEDS ORDERED: Ondansetron 4 MG/2 ML VIAL IVP PRN (10:09)
[2022-03-11] MEDS ORDERED: DilTIAZem 50 MG/50 ML IV.SOLN IVC SCH ×2 (10:09→11:15)
[2022-03-11 10:25] LABS: ABG Base Excess -7 mEq/L (-2 to 3); ABG HCO3 20 mEq/L (21-27); ABG Oxygen Saturation 100 % (95-98); ABG PCO2 43 mmHg (35-45); ABG PH 7.26 pH Units (7.32-7.45); ABG PO2 340 mmHg (85-104); ABG TCO2 21 mEq/L (20-26); Blood Gas VT 420 cc
[2022-03-11] MEDS: Micafungin 100 MG in 0.9 % Sodium Chloride Mini Bag 100 ML IVPB SCH (10:44)
[2022-03-11 10:46] LABS: Hematocrit 36.5 % (35.3-44.9); Mean Corpuscular HGB Conc 32.1 g/dL (31.6-35.5); Mean Corpuscular Hemoglobin 33.2 pg (28.0-33.3); Mean Corpuscular Volume 103.7 fL (83.0-100.0); Mean Platelet Volume 10.8 fL (9.4-12.4); Platelet Count 108 K/mcL (140-400); Red Blood Count 3.52 M/mcL (3.82-4.97); Red Cell Distribution Width 16.4 % (11.5-14.5)
[2022-03-11 10:50] LABS: ABG Ionized Calcium 1.05 mmol/L (1.15-1.35)
[2022-03-11 10:54] LABS: Hemoglobin 11.7 g/dL (11.5-15.4); White Blood Count 2.1 K/mcL (4.3-11.1)
[2022-03-11 11:08] LABS: INR 1.9; Lymphocytes # 0.2 K/mcL (0.6-4.6); Monocytes # 0.1 K/mcL (0.0-1.3); Neutrophils # 1.7 K/mcL (1.6-8.9)
[2022-03-11 11:09] LABS: Large Platelets Present (Not Present); Platelet Estimate Slight Decrease (Normal)
[2022-03-11 11:10] LABS: Activated Partial Thrombo Time 32.4 Seconds (26.0-36.0)
[2022-03-11 11:29] LABS: Albumin 2.9 g/dL (3.5-5.7); Albumin/Globulin Ratio 1.9 (1.1-2.2); Bilirubin,Total 2.3 mg/dL (0.3-1.0); Calcium 7.8 mg/dL (8.6-10.3); Globulin 1.5 g/dL (2.4-3.5); Magnesium 1.8 mg/dL (1.6-2.6); Phosphorous 3.6 mg/dL (2.7-4.5); Potassium 3.1 mEq/L (3.5-5.1); Total Protein 4.4 g/dL (6.4-8.9)
[2022-03-11] MEDS: Albumin Human 5% 12.5 GM/250 ML IV.SOLN IVC SCH ×2 (11:30→12:01)
[2022-03-11] MEDS ORDERED: DOBUTamine 1,000 MG/250 ML BAG IVC SCH (11:45)
[2022-03-11 11:54] LABS: ABG Base Excess -10 mEq/L (-2 to 3); ABG HCO3 16 mEq/L (21-27); ABG Oxygen Saturation 93 % (95-98); ABG PCO2 34 mmHg (35-45); ABG PH 7.28 pH Units (7.32-7.45); ABG PO2 75 mmHg (85-104); ABG TCO2 17 mEq/L (20-26); Blood Gas Modality ASSIST CONTROL; Blood Gas VT 420 cc
[2022-03-11] MEDS: Norepinephrine 32 MG in 0.9 % Sodium Chloride 218 ML IVC SCH ×2 (11:57→22:42)
[2022-03-11] MEDS: Phenylephrine 100 MG in 0.9 % Sodium Chloride 250 ML IVC SCH ×4 (11:57→21:59)
[2022-03-11] MEDS: Calcium Gluconate 1gm/50mL 1 GM/50 ML BAG IVPB SCH ×2 (12:13→13:11)
[2022-03-11] MEDS: Hydrocortisone Sodium Succ 100 MG/2 ML VIAL IVP SCH ×3 (12:14→23:52)
[2022-03-11] MEDS ORDERED: D10% in Water 500 ML IVC PRN (13:23)
[2022-03-11] MEDS ORDERED: D5% in Water 1,000 ML IVC PRN (14:02)
[2022-03-11] MEDS ORDERED: Dextrose 4 GM Chewable Tablets PO PRN ×2 (14:02)
[2022-03-11] MEDS ORDERED: *HR* Dextrose 50 % in Water (Syg) 50 ML SYRINGE IVP PRN (14:02)
[2022-03-11 15:21] LABS: Calcium 8.4 mg/dL (8.6-10.3); Potassium 4.1 mEq/L (3.5-5.1); Troponin I 0.1 ng/mL (< 0.04)
[2022-03-11] MEDS: *HR* Heparin 5,000 UNIT/ML VIAL SQ SCH (15:32)
[2022-03-11 16:10] LABS: ABG Base Excess -13 mEq/L (-2 to 3); ABG HCO3 13 mEq/L (21-27); ABG Oxygen Saturation 94 % (95-98); ABG PCO2 29 mmHg (35-45); ABG PH 7.26 pH Units (7.32-7.45); ABG PO2 80 mmHg (85-104); ABG TCO2 14 mEq/L (20-26); Blood Gas VT 420 cc
[2022-03-11] MEDS ORDERED: Sodium Bicarbonate 150 MEQ in D5% in Water 1,000 ML IVC SCH (16:30)
[2022-03-11] MEDS ORDERED: Clinimix E 5%-15% SOLUTION 2,000 ML with MVI, adult with vitamin K 10 ML IVC SCH (17:00)
[2022-03-11] MEDS: Insulin LISPRO 300 UNITS/3 ML VIAL SUBQ SCH ×2 (17:03→21:12)
[2022-03-11 17:38] LABS: Hematocrit 38.2 % (35.3-44.9); Hemoglobin 12.3 g/dL (11.5-15.4); Mean Corpuscular HGB Conc 32.2 g/dL (31.6-35.5); Mean Corpuscular Hemoglobin 32.9 pg (28.0-33.3); Mean Corpuscular Volume 102.1 fL (83.0-100.0); Mean Platelet Volume 11.2 fL (9.4-12.4); Platelet Count 109 K/mcL (140-400); Red Blood Count 3.74 M/mcL (3.82-4.97); Red Cell Distribution Width 17.1 % (11.5-14.5)
[2022-03-11 17:40] LABS: White Blood Count 3.4 K/mcL (4.3-11.1)
[2022-03-11 17:51] LABS: INR 2.1
[2022-03-11 17:53] LABS: Activated Partial Thrombo Time 34.5 Seconds (26.0-36.0)
[2022-03-11 18:00] LABS: Large Platelets Present (Not Present); Lymphocytes # 0.6 K/mcL (0.6-4.6); Monocytes # 0.1 K/mcL (0.0-1.3); Neutrophils # 2.1 K/mcL (1.6-8.9); Platelet Estimate Slight Decrease (Normal)
[2022-03-11] MEDS ORDERED: *HR* Metoprolol 5 MG/5 ML VIAL IVP ONE (21:07)
[2022-03-11] MEDS: *HR* Metoprolol 5 MG/5 ML VIAL IVP ONE (21:10)
[2022-03-11] MEDS ORDERED: Artificial Tears SOLN 15 ML BOTTLE BOTH EYES PRN (21:11)
[2022-03-11] MEDS: FentaNYL (PF) 1,000 MCG/100 ML IV.SOLN IVC SCH (22:00)
[2022-03-11] MEDS: Dexmedetomidine HCl 400 MCG/100 ML MLS IVC SCH (22:50)
[2022-03-11 23:09] LABS: Hematocrit 37.3 % (35.3-44.9); Hemoglobin 12.1 g/dL (11.5-15.4)
[2022-03-11 23:11] LABS: VBG Ionized Calcium 1.05 mmol/L (1.15-1.35)
[2022-03-11] MEDS: Artificial Tears SOLN 15 ML BOTTLE BOTH EYES SCH (23:52)
[2022-03-11 23:55] LABS: Phosphorous 4.2 mg/dL (2.7-4.5)
[2022-03-12 00:04] LABS: Troponin I 0.21 ng/mL (< 0.04)
[2022-03-12] MEDS: Insulin LISPRO 300 UNITS/3 ML VIAL SUBQ SCH ×6 (00:05→20:22)
[2022-03-12 00:46] LABS: ABG Base Excess -10 mEq/L (-2 to 3); ABG HCO3 15 mEq/L (21-27); ABG Oxygen Saturation 97 % (95-98); ABG PCO2 28 mmHg (35-45); ABG PH 7.33 pH Units (7.32-7.45); ABG PO2 91 mmHg (85-104); ABG TCO2 15 mEq/L (20-26); Blood Gas VT 420 cc
[2022-03-12] MEDS: Calcium Gluconate 1gm/50mL 1 GM/50 ML BAG IVPB PRN ×2 (01:03→05:49)
[2022-03-12] MEDS: Phenylephrine 100 MG in 0.9 % Sodium Chloride 250 ML IVC SCH ×7 (01:28→21:59)
[2022-03-12] MEDS: Sodium Bicarbonate 150 MEQ in D5% in Water 1,000 ML IVC SCH ×2 (03:40→15:14)
[2022-03-12] MEDS: Norepinephrine 32 MG in 0.9 % Sodium Chloride 218 ML IVC SCH ×4 (04:01→22:32)
[2022-03-12] MEDS: Artificial Tears SOLN 15 ML BOTTLE BOTH EYES SCH ×5 (04:02→20:23)
[2022-03-12 04:37] LABS: Hemoglobin 11.7 g/dL (11.5-15.4); Nucleated Red Blood Cells 0.4 /100 WBC (0)
[2022-03-12 04:39] LABS: Hematocrit 35.8 % (35.3-44.9); Immature Platelets 10.7 % (1.1-6.1); Mean Corpuscular HGB Conc 32.7 g/dL (31.6-35.5); Mean Corpuscular Hemoglobin 33.3 pg (28.0-33.3); Mean Platelet Volume 12.9 fL (9.4-12.4); Red Blood Count 3.51 M/mcL (3.82-4.97); Red Cell Distribution Width 17.6 % (11.5-14.5); White Blood Count 7.9 K/mcL (4.3-11.1)
[2022-03-12 04:42] LABS: VBG Ionized Calcium 1.05 mmol/L (1.15-1.35)
[2022-03-12 04:47] LABS: Platelet Count 74 K/mcL (140-400)
[2022-03-12 04:59] LABS: ABG Base Excess -8 mEq/L (-2 to 3); ABG HCO3 16 mEq/L (21-27); ABG Oxygen Saturation 96 % (95-98); ABG PCO2 29 mmHg (35-45); ABG PH 7.36 pH Units (7.32-7.45); ABG PO2 80 mmHg (85-104); ABG TCO2 17 mEq/L (20-26); Blood Gas Modality ASSIST CONTROL; Blood Gas VT 420 cc
[2022-03-12 05:18] LABS: Large Platelets Present (Not Present); Lymphocytes # 1.1 K/mcL (0.6-4.6); Monocytes # 0.3 K/mcL (0.0-1.3); Platelet Estimate Decreased (Normal)
[2022-03-12 05:25] LABS: Albumin 2.9 g/dL (3.5-5.7); Albumin/Globulin Ratio 1.8 (1.1-2.2); Bilirubin,Direct 2.2 mg/dL (0.0-0.2); Bilirubin,Indirect 0.9 mg/dL (0.0-1.0); Bilirubin,Total 3.1 mg/dL (0.3-1.0); Calcium 7.9 mg/dL (8.6-10.3); Globulin 1.6 g/dL (2.4-3.5); Phosphorous 4.3 mg/dL (2.7-4.5); Potassium 4.4 mEq/L (3.5-5.1); Total Protein 4.5 g/dL (6.4-8.9)
[2022-03-12] MEDS: Hydrocortisone Sodium Succ 100 MG/2 ML VIAL IVP SCH ×3 (05:42→17:11)
[2022-03-12] MEDS: *HR* Heparin 5,000 UNIT/ML VIAL SQ SCH ×2 (05:42→17:11)
[2022-03-12] MEDS: FentaNYL (PF) 1,000 MCG/100 ML IV.SOLN IVC SCH ×4 (06:10→21:10)
[2022-03-12] MEDS ORDERED: Amiodarone Premix 360 MG/200 ML BAG IVC ONE (07:30)
[2022-03-12] MEDS: Piperacillin/Tazobactam 3.375 GM in 0.9 % Sodium Chloride Mini Bag 100 ML IVPB SCH ×2 (07:42→19:43)
[2022-03-12] MEDS: Micafungin 100 MG in 0.9 % Sodium Chloride Mini Bag 100 ML IVPB SCH (07:58)
[2022-03-12] MEDS ORDERED: Acetylcysteine IV 15,000 MG in D5% in Water 250 ML IVC ONE (08:00)
[2022-03-12] MEDS: Dexmedetomidine HCl 400 MCG/100 ML MLS IVC SCH ×4 (08:08→21:30)
[2022-03-12] MEDS: Chlorhexidine Rinse 15 ML MOUTHWASH MM SCH ×2 (08:17→19:40)
[2022-03-12] MEDS ORDERED: Acetylcysteine IV 5,000 MG in D5% in Water 500 ML IVC ONE (09:20)
[2022-03-12 09:52] LABS: mecA/C Methicillin-Resist Gene DETECTED (Not Detect)
[2022-03-12 09:53] LABS: A.calcoaceticus-baumannii cplx Not Detected (Not Detect); Bacteroides fragilis by PCR Not Detected (Not Detect); Candida albicans by PCR Not Detected (Not Detect); Candida auris by PCR Not Detected (Not Detect); Candida glabrata by PCR Not Detected (Not Detect); Candida krusei by PCR Not Detected (Not Detect); Candida parapsilosis by PCR Not Detected (Not Detect); Candida tropicalis by PCR Not Detected (Not Detect); Crypto. neoformans/gattii PCR Not Detected (Not Detect); Enterobacter cloacae Cmplx PCR Not Detected (Not Detect); Enterobacterales by PCR Not Detected (Not Detect); Enterococcus faecalis by PCR Not Detected (Not Detect); Enterococcus faecium by PCR Not Detected (Not Detect); Escherichia coli by PCR Not Detected (Not Detect); Klebs. pneumoniae group by PCR Not Detected (Not Detect); Klebsiella aerogenes by PCR Not Detected (Not Detect); Klebsiella oxytoca by PCR Not Detected (Not Detect); Proteus by PCR Not Detected (Not Detect); Pseudomonas aeruginosa by PCR Not Detected (Not Detect); Salmonella species by PCR Not Detected (Not Detect); Serratia marcescens by PCR Not Detected (Not Detect); Staph epidermidis by PCR DETECTED (Not Detect); Staph lugdunensis by PCR Not Detected (Not Detect); Staphylococcus aureus by PCR Not Detected (Not Detect); Stenotrophomonas maltophilia Not Detected (Not Detect); Streptococcus agalactiae(B)PCR Not Detected (Not Detect); Streptococcus by PCR Not Detected (Not Detect); Streptococcus pneumoniae PCR Not Detected (Not Detect); Streptococcus pyogenes (A) PCR Not Detected (Not Detect)
[2022-03-12] MEDS ORDERED: Albumin Human 5% 25.0 GM/500 ML IV.SOLN ONE (10:03)
[2022-03-12] MEDS ORDERED: Albumin Human 5% 12.5 GM/250 ML IV.SOLN IVPB ONE ×2 (10:07→10:09)
[2022-03-12] MEDS: Pantoprazole 40 MG VIAL IVP SCH ×2 (11:09→17:11)
[2022-03-12 11:21] LABS: ABG Base Excess -7 mEq/L (-2 to 3); ABG HCO3 18 mEq/L (21-27); ABG Oxygen Saturation 93 % (95-98); ABG PCO2 31 mmHg (35-45); ABG PH 7.37 pH Units (7.32-7.45); ABG PO2 66 mmHg (85-104); ABG TCO2 19 mEq/L (20-26); Blood Gas Modality ASSIST CONTROL; Blood Gas VT 420 cc
[2022-03-12 11:25] LABS: VBG Ionized Calcium 0.98 mmol/L (1.15-1.35)
[2022-03-12] MEDS: Albumin Human 5% 12.5 GM/250 ML IV.SOLN IVC SCH ×4 (11:47→18:45)
[2022-03-12] MEDS ORDERED: Acetylcysteine IV 10,000 MG in D5% in Water 1,000 ML IVC ONE (13:30)
[2022-03-12] MEDS: Amiodarone Premix 360 MG/200 ML BAG IVC SCH (13:39)
[2022-03-12] MEDS ORDERED: Clinimix E 5%-15% SOLUTION 2,000 ML with MVI, adult with vitamin K 10 ML IVC SCH (17:00)
[2022-03-12 17:12] LABS: Calcium 7.4 mg/dL (8.6-10.3); Potassium 4.7 mEq/L (3.5-5.1)
[2022-03-12] MEDS ORDERED: Albumin Human 5% 12.5 GM/250 ML IV.SOLN IVC SCH (18:15)
[2022-03-12 18:19] LABS: ABG Base Excess -12 mEq/L (-2 to 3); ABG HCO3 15 mEq/L (21-27); ABG Oxygen Saturation 93 % (95-98); ABG PCO2 35 mmHg (35-45); ABG PH 7.24 pH Units (7.32-7.45); ABG PO2 78 mmHg (85-104); ABG TCO2 16 mEq/L (20-26); Blood Gas Modality ASSIST CONTROL; Blood Gas VT 420 cc
[2022-03-12 21:32] LABS: VBG Ionized Calcium 0.93 mmol/L (1.15-1.35)
[2022-03-12] MEDS ORDERED: Calcium Chloride 2,000 MG in 0.9 % Sodium Chloride 100 ML IVPB ONE (22:05)
[2022-03-13] MEDS: Sodium Bicarbonate 150 MEQ in D5% in Water 1,000 ML IVC SCH ×2 (00:22→10:25)
[2022-03-13] MEDS: Artificial Tears SOLN 15 ML BOTTLE BOTH EYES SCH ×4 (00:22→11:52)
[2022-03-13] MEDS: Insulin LISPRO 300 UNITS/3 ML VIAL SUBQ SCH ×4 (00:23→12:09)
[2022-03-13] MEDS: Hydrocortisone Sodium Succ 100 MG/2 ML VIAL IVP SCH ×3 (00:24→11:51)
[2022-03-13] MEDS: Phenylephrine 100 MG in 0.9 % Sodium Chloride 250 ML IVC SCH ×4 (00:45→11:46)
[2022-03-13] MEDS: Amiodarone Premix 360 MG/200 ML BAG IVC SCH ×2 (01:20→12:21)
[2022-03-13] MEDS: Dexmedetomidine HCl 400 MCG/100 ML MLS IVC SCH ×4 (01:35→13:38)
[2022-03-13] MEDS: FentaNYL (PF) 1,000 MCG/100 ML IV.SOLN IVC SCH ×3 (02:21→12:50)
[2022-03-13 03:47] LABS: Mean Corpuscular Volume 104.6 fL (83.0-100.0); Nucleated Red Blood Cells 0.9 /100 WBC (0); Red Cell Distribution Width 17.8 % (11.5-14.5)
[2022-03-13 03:49] LABS: Hematocrit 27.1 % (35.3-44.9); Hemoglobin 8.6 g/dL (11.5-15.4); Immature Platelets 14.9 % (1.1-6.1); Mean Corpuscular HGB Conc 31.7 g/dL (31.6-35.5); Mean Corpuscular Hemoglobin 33.2 pg (28.0-33.3); Mean Platelet Volume 12.3 fL (9.4-12.4); Red Blood Count 2.59 M/mcL (3.82-4.97); White Blood Count 19.4 K/mcL (4.3-11.1)
[2022-03-13 03:54] LABS: VBG Ionized Calcium 1.03 mmol/L (1.15-1.35)
[2022-03-13 04:15] LABS: ABG Base Excess -13 mEq/L (-2 to 3); ABG HCO3 14 mEq/L (21-27); ABG Oxygen Saturation 95 % (95-98); ABG PCO2 31 mmHg (35-45); ABG PH 7.25 pH Units (7.32-7.45); ABG PO2 84 mmHg (85-104); ABG TCO2 15 mEq/L (20-26); Blood Gas Modality ASSIST CONTROL; Blood Gas VT 420 cc
[2022-03-13 04:22] LABS: Albumin 3.2 g/dL (3.5-5.7); Albumin/Globulin Ratio 2.7 (1.1-2.2); Bilirubin,Direct 3.1 mg/dL (0.0-0.2); Bilirubin,Indirect 2.2 mg/dL (0.0-1.0); Bilirubin,Total 5.3 mg/dL (0.3-1.0); Calcium 8.3 mg/dL (8.6-10.3); Globulin 1.2 g/dL (2.4-3.5); Magnesium 1.9 mg/dL (1.6-2.6); Phosphorous 4.9 mg/dL (2.7-4.5); Potassium 4.4 mEq/L (3.5-5.1); Total Protein 4.4 g/dL (6.4-8.9)
[2022-03-13] MEDS: Calcium Gluconate 1gm/50mL 1 GM/50 ML BAG IVPB PRN ×2 (04:36→05:22)
[2022-03-13] MEDS: Norepinephrine 32 MG in 0.9 % Sodium Chloride 218 ML IVC SCH ×2 (04:36→10:42)
[2022-03-13 04:55] LABS: Platelet Count 26 K/mcL (140-400)
[2022-03-13 04:57] LABS: Lymphocytes # 1.2 K/mcL (0.6-4.6); Monocytes # 1.2 K/mcL (0.0-1.3); Neutrophils # 17.1 K/mcL (1.6-8.9)
[2022-03-13 04:58] LABS: Burr Cells 1+ (Not Present); Platelet Estimate Marked Decrease (Normal)
[2022-03-13] MEDS: Pantoprazole 40 MG VIAL IVP SCH (05:48)
[2022-03-13 06:54] LABS: ABG Base Excess -11 mEq/L (-2 to 3); ABG Chloride 111 mEq/L (98-107); ABG Glucose 168 mg/dL (60-95); ABG HCO3 15 mEq/L (21-27); ABG Ionized Calcium 1.23 mmol/L (1.15-1.35); ABG Oxygen Saturation 100 % (95-98); ABG PCO2 31 mmHg (35-45); ABG PH 7.29 pH Units (7.32-7.45); ABG PO2 208 mmHg (85-104); ABG TCO2 16 mEq/L (20-26)
[2022-03-13] MEDS: Chlorhexidine Rinse 15 ML MOUTHWASH MM SCH (07:25)
[2022-03-13] MEDS: Micafungin 100 MG in 0.9 % Sodium Chloride Mini Bag 100 ML IVPB SCH (07:25)
[2022-03-13] MEDS: Piperacillin/Tazobactam 3.375 GM in 0.9 % Sodium Chloride Mini Bag 100 ML IVPB SCH (07:26)
[2022-03-13 10:00] LABS: Hemoglobin 8.8 g/dL (11.5-15.4); Mean Corpuscular Volume 102.3 fL (83.0-100.0)
[2022-03-13 10:02] LABS: Hematocrit 26.7 % (35.3-44.9); Immature Platelets 16.2 % (1.1-6.1); Mean Corpuscular Hemoglobin 33.7 pg (28.0-33.3); Mean Platelet Volume 12.3 fL (9.4-12.4); Red Blood Count 2.61 M/mcL (3.82-4.97); Red Cell Distribution Width 17.9 % (11.5-14.5); White Blood Count 19.1 K/mcL (4.3-11.1)
[2022-03-13 10:11] LABS: Platelet Count 17 K/mcL (140-400)
[2022-03-13 10:29] LABS: Neutrophils # 17.2 K/mcL (1.6-8.9)
[2022-03-13 10:30] LABS: Lymphocytes # 0.8 K/mcL (0.6-4.6)
[2022-03-13 10:31] LABS: Activated Partial Thrombo Time 49.3 Seconds (26.0-36.0); Monocytes # 0.4 K/mcL (0.0-1.3)
[2022-03-13 10:33] LABS: Anisocytosis 1+ (Not Present); Platelet Estimate Marked Decrease (Normal); Poikilocytosis 1+ (Not Present)
[2022-03-13 10:34] LABS: INR 5.8; Prothrombin Time 63.6 Seconds (9.4-12.1)
[2022-03-13] MEDS ORDERED: Insulin DETEMIR 100 UNIT/ML X5UNITS SUBQ SCH (12:00)
[2022-03-13] MEDS ORDERED: Clindamycin 600 MG/50 ML 600 MG/50 ML IV.SOLN IVPB SCH (12:00)
[2022-03-13] MEDS ORDERED: *HR* LORazepam 2 MG/ML VIAL IVP PRN (12:14)
[2022-03-13] MEDS ORDERED: Glycopyrrolate 0.2 MG/ML VIAL IVP ONE (12:15)
[2022-03-13 12:21] VITALS: TEMP 98.7
[2022-03-13 14:35] VITALS: BP 99/66; PULSE 132; O2SAT 95
[2022-03-13] MEDS ORDERED: Clinimix 5%-20% SOLUTION 2,000 ML with Amino Acids 10% 0 ML, MVI, adult with vitamin ... IVC SCH (17:00)
== END 2022-03-13 15:15 | disposition expired | DRG 853 ==
LOC: 2NNU 19:02 → EMEROOARM 19:02 → 2NNU 23:42 → ICNU 03-11 02:09
PROVIDERS: ADMIT Internal Medicine; ATTEND Internal Medicine